=== PATIENT | female | born 1950 | race Caucasian/White ===

== ENCOUNTER 2018-05-24 11:40 | Emergency (ER) | payer MEDICARE, SELFPAY ==
[2018-05-24 11:41] VITALS: BP 174/98; PULSE 89; RESP 16; TEMP 36.6; O2SAT 95; BMI 42.8
[2018-05-24 12:00] VITALS: BP 158/69; PULSE 84; RESP 14; O2SAT 95
[2018-05-24 12:06] VITALS: BP 176/96; BP 186/89; BP 196/120; PULSE 83; PULSE 86; PULSE 99
--- NOTE | 2018-05-24 12:27 | EKG12_ITS ---
Test Reason : Blood Pressure : / mmHG Vent. Rate : 077 BPM Atrial Rate : 077 BPM P-R Int : 164 ms QRS Dur : 094 ms QT Int : 378 ms P-R-T Axes : 021 037 053 degrees QTc Int : 427 ms Normal sinus rhythm Normal ECG Confirmed by KAREEM MCKAY MD ([id number]), graphics editor EMERITA GONZALES ([id number] on 05/25/2018 11:55:01 AM Referred By: LALA Confirmed By:KAREEM MCKAY MD
--- NOTE | 2018-05-24 12:27 | RAD_ITS ---
STUDY: X-RAY CHEST REASON FOR EXAM: Female, 67 years old. Fatigue. Hyponatremia. TECHNIQUE: PA and lateral views of the chest. COMPARISON: None. FINDINGS: EKG electrodes are seen. There is elevation of the right hemidiaphragm. Scattered calcified granulomas. There is no demonstrated pleural abnormality. There is mild cardiac enlargement. Normal mediastinum and britni. Normal visualized pulmonary arteries. There is atherosclerotic calcification of the aortic arch with tortuosity. There are diffuse degenerative changes of the visualized thoracic spine. There is degenerative osteoarthritis of the bilateral shoulders. There is no demonstrated abnormality of the visualized soft tissue structures of the upper abdomen. RAD/Chest PA and Lateral IMPRESSION: Elevation of the right hemidiaphragm. Electronically Signed: Lokesh Wilson MD at 13:37 EST Tel [phone], Service support ,
--- NOTE | 2018-05-24 12:34 | ED.DCSUM_ITS ---
History of Present Illness Chief Complaint: Abn Labs Informant: Patient, Family Onset: Yesterday Associated Symptoms: fatigue. intermittent dizziness. Narrative: Patient had a routine visit with a new PCP with labs being drawn yesterday, they resulted showing a sodium of 116 she was advised to come to the ER. She states she has felt tired and fatigued for years. She has not been confused lately. She thinks she has been a little more tired lately. She cannot tell me how long. She finished a course of amoxicillin about a week ago for some dental discomfort from an old root canal. Subsequently, she has had some diarrhea several times a day that she thinks is starting to improve, no blood or melena. No nausea or vomiting. She has chronic dyspnea with exertion for the last several years as well, that is no worse and she denies having any chest discomfort. When she stands up she feels wobbly and vertiginous at times, no presyncope or syncope. That also has been chronically intermittent. She has had no issues urinating. She does have chronic incontinence for which she has a bladder stimulator. - Past Medical History (1) Bladder incontinence Status: Chronic Past Medical History - Allergies and Home Meds Allergies/Adverse Reactions: Allergies trospium Adverse Reaction (Verified 05/24/18 11:43) Shortness of breath Primary Care Physician: Richard Glass MD [Primary Care Provider] - Surgical History: - - bladder stimulator Lives: Alone Smoking Status: Never smoker Review of Systems General: Reports: Malaise. Denies: Chills, Fever, Sweats Eyes: Denies: Visual changes - bilaterally, Diplopia ENT: Denies: Bilateral ear pain, Rhinorrhea, Sore throat Cardiovascular: Denies: Chest pain, Palpitations Respiratory: Reports: Dyspnea on exertion. Denies: Cough, Orthopnea, Paroxysmal nocturnal dyspnea Gastrointestinal: Denies: Abdominal pain, Nausea, Vomiting, Diarrhea, Melena, Hematochezia Genitourinary: Denies: Dysuria, Hematuria, Frequency Musculoskeletal: Reports: Arthralgias. Denies: Neck pain, Back pain, Swelling Skin: Denies: Rash, Wounds Neurological: Denies: Headache, Weakness, Parasthesia, Numbness Psych: Denies: Anxiety, Suicidal thoughts Endocrine: Denies: Polyuria, Polydipsia Hematologic: Denies: Easy bruising, Easy bleeding Allergy: Denies: Swelling of the mouth, Swelling of the tongue Physical Exam Vital Signs/Narrative: Vital Signs Temp Pulse Pulse Pulse Pulse Resp BP 05/24/18 12:06 86 83 99 05/24/18 12:00 84 14 158/69 H 05/24/18 11:41 97.8 F 89 16 174/98 H BP BP BP Pulse Ox 05/24/18 12:06 176/96 H 186/89 H 196/120 H 05/24/18 12:00 95 05/24/18 11:41 95 Inital Vital Signs reviewed: Yes General: Well nourished, Well developed, Obese, - - well-appearing, nad Head: Normocephalic, Atraumatic Eyes: Perrl, EOMI ENT: Moist mucous membranes, No rhinorrhea. Negative for: Nasal congestion Neck: Supple, Nontender, No lymphadenopathy, No JVD Cardiovascular: Regular rate, Regular rhythm, No murmurs Respiratory: No distress, CTA bilaterally, Chest nontender Abdomen: Soft, Nontender, Nondistended, Normal bowel sounds Back: Nontender, Normal Inspection. Negative for: CVA tenderness Extremities: Nontender, No edema Skin: Normal color, No rash Neurological: Alert, Oriented x3, Cranial nerves II-XII grossly intact, Normal Strength, Normal Sensation Psychological: Normal affect Diagnostic/Tx/Re-eval Impressions Chest X-Ray 05/24/18 12:27 IMPRESSION: Elevation of the right hemidiaphragm. Electronically Signed: Lokesh Wilson MD at 13:37 EST Tel [phone], Service support , 05/24/18 12:27 Chest PA and Lateral [RAD] Stat Laboratory Results 05/24/18 05/24/18 05/24/18 12:43 12:55 12:55 WBC 6.1 RBC 4.22 Hgb 13.5 Hct 41.7 MCV 98.8 MCH 32.0 MCHC 32.4 RDW 12.8 RDW Differential 45.3 H Plt Count 214 MPV 10.8 Immature Gran % (Auto) 0.200 Neut % (Auto) 45.2 L Lymph % (Auto) 39.1 [place] % (Auto) 10.1 H Eos % (Auto) 4.4 Baso % (Auto) 1.0 Absolute Neuts (auto) 2.8 Absolute Lymphs (auto) 2.39 Total Counted Not Reportable Sodium Cancelled Potassium Cancelled Chloride Cancelled Carbon Dioxide Cancelled Anion Gap Cancelled BUN Cancelled Creatinine Cancelled Estim Creat Clear Calc Cancelled Est GFR (MDRD) Af Amer Cancelled Est GFR (MDRD) Non-Af Cancelled BUN/Creatinine Ratio Cancelled Glucose Cancelled Calcium Cancelled Troponin I Cancelled B-Natriuretic Peptide 18.7 Urine Color Urine Clarity Urine pH Ur Specific [place] Urine Protein Urine Glucose (UA) Urine Ketones Urine Occult Blood Urine Nitrite Urine Bilirubin Urine Urobilinogen Ur Leukocyte Esterase Urine RBC Urine WBC Ur Squamous Epith Cells Urine Bacteria Urine Mucus 05/24/18 05/24/18 12:55 14:17 WBC RBC Hgb Hct MCV MCH MCHC RDW RDW Differential Plt Count MPV Immature Gran % (Auto) Neut % (Auto) Lymph % (Auto) [place] % (Auto) Eos % (Auto) Baso % (Auto) Absolute Neuts (auto) Absolute Lymphs (auto) Total Counted Sodium 140 Potassium 4.4 Chloride 106 Carbon Dioxide 30.0 Anion Gap 4 L BUN 17 Creatinine 0.65 Estim Creat Clear Calc 45.85 Est GFR (MDRD) Af Amer 116 Est GFR (MDRD) Non-Af 96 BUN/Creatinine Ratio 26.2 H Glucose 111 H Calcium 8.8 Troponin I < 0.015 B-Natriuretic Peptide Urine Color Yellow Urine Clarity Clear Urine pH 7.0 Ur Specific [place] 1.005 Urine Protein Negative Urine Glucose (UA) Normal Urine Ketones Negative Urine Occult Blood 10 H Urine Nitrite Negative Urine Bilirubin Negative Urine Urobilinogen Normal Ur Leukocyte Esterase Negative Urine RBC 0-5 SEEN Urine WBC 0 SEEN Ur Squamous Epith Cells 0 SEEN Urine Bacteria 0 SEEN Urine Mucus 0 SEEN - Rhythm Strip Rhythm Strip: Sinus Rhythm Rate: 75 Ectopy: None - EKG Initial EKG Interpretation: Sinus Rhythm, No Acute Injury Pattern - Normal EKG - Medical Decision Making Labs are normal including her sodium at 140. Her calcium was low out on outpatient labs, that is normal on our labs today also. I discussed with Dr. Glass, we agreed this was probably lab error from the labs yesterday, she appeared to have cholesterol checked that were normal too including triglycerides, she appears to be euvolemic. Also, urine was unremarkable, her BNP is 16, well within normal limits. I think she can be discharged home with close outpatient follow-up for reevaluation of her blood pressure. She is comfortable with that plan. ED Disposition - Plan for ED Patient: Disposition: Home or Assisted Living Chief Complaint: Abn Labs Diagnosis: Fatigue, Dyspnea on exertion, Accelerated hypertension Instructions: ED Weakness UKO, ED HTN Established Referrals: Richard Glass MD [Primary Care Provider] - 1 Week if not improving
[2018-05-24] MEDS: 0.9% Normal Saline 1,000 ML 150 ML IV (13:06)
[2018-05-24] MEDS: hydrALAZINE 20 MG/ML Vial 10 MG IV (13:06)
[2018-05-24 13:11] LABS: Absolute Lymphocyte Count 2.39 X10^3/ul (0.83-4.51); Absolute Neutrophil Count 2.8 X10^3/uL (2.0-7.7); Basophil# 0.06 X10^3/uL; Eosinophil# 0.27 X10^3/uL; Eosinophils% 4.4 % (0-5); Hematocrit 41.7 % (37-47); Hemoglobin 13.5 g/dl (12.0-15.0); Lymphocyte # 2.39 X10^3/ul (4.0); Lymphocyte % 39.1 % (19-41); Mean Corp Hgb Conc 32.4 g/gl (32-36); Mean Corpuscular Volume 98.8 fL (81-99); Mean Platelet Vol. 10.8 fl (6.2-12.0); Monocyte# 0.62 X10^3/uL; Monocyte% 10.1 % (0-10); Neutrophil # 2.76 X10^3/uL (2.7-7.7); Neutrophil % 45.2 % (47-70); POSITIVE COUNT NO; POSITIVE DIFFERENTIAL NO; POSITIVE MORPHOLOGY NO; Platelet Count 214 K/mm3 (150-450); RBC Distribution Width CV 12.8 % (11.6-14.6); RBC Distribution Width SD 45.3 fl (35.1-43.9); Red Blood Count 4.22 M/mm3 (4.2-5.4); White Blood Count 6.1 K/mm3 (4.4-11.0)
[2018-05-24 13:35] LABS: Anion Gap 4 (5-15); BNP,B-Type NATRIURETIC PEPTIDE 18.7 pg/mL (0-100); BUN 17 mg/dL (7-18); BUN/Creat Ratio 26.2 RATIO (10-20); Calcium,Total 8.8 mg/dL (8.5-10.1); Chloride 106 mmol/L (98-107); Creatinine, Serum 0.65 mg/dL (0.55-1.02); EST Glomerular Filtration Rate 96 mL/min (>60); Est Glom Filt Rate - Afr Amer 116 mL/min (>60); Estimated Creatinine Clearance 45.85 ml/min; Glucose 111 mg/dL (74-106); Potassium 4.4 mmol/L (3.5-5.1); Sodium Level 140 mmol/L (136-145)
[2018-05-24 14:00] VITALS: BP 150/60; PULSE 90; RESP 16; O2SAT 95
[2018-05-24 14:22] LABS: Bacteria 0 SEEN /hpf (None Seen); Mucous, Urine 0 SEEN /hpf (<or=2+); Squamous Epithelial Cells - UA 0 SEEN /hpf (5-10); White Blood Cells 0 SEEN /hpf (0-5)
[2018-05-24 14:29] LABS: Color, Urine Yellow (Yellow); Glucose, Dipstick Normal (Normal); Ketone-Dipstick Negative (Negative); Leukocyte Esterase-Dipstick Negative /ul (Negative); Nitrite-Dipstick Negative (Negative); Occult Blood-Urine 10 /ul (Negative); Protein-Dipstick Negative (Negative); Specific Gravity, Urine 1.005 (1.002-1.030); Urine Bilirubin Dipstick Negative (Negative); Urine Clarity Clear (Clear); Urine Urobilinogen Normal (Normal)
[2018-05-24 14:51] LABS: Red Blood Cells-Urine 0-5 SEEN /hpf (0-5)
[2018-05-24 15:46] VITALS: BP 140/63; PULSE 84; RESP 18; O2SAT 98
--- NOTE | 2018-05-24 15:47 | ED.RN ---
REVIEWED D/C INSTRUCTIONS, FOLLOW UP CARE, PRESCRIPTION, AND S/S THAT WOULD WARRANT A RETURN TO THE ED WITH PT. PT VERBALIZED AN UNDERSTANDING AND DENIES FURTHER QUESTIONS FOR THIS RN. PT SKIN P/W/D, RESP EVEN AND UNLABORED, PT A&O X 3, NO DISTRESS NOTED. PT AMBULATED OUT OF ED, GAIT STEADY.
--- OUTSIDE RECORDS SUMMARY | 2018-07-10 08:55 | XMS RPT_ITS ---
:1950 Author Organization OH[facility] Care Team Providers Name Role Phone DESTINI SILVA (DAVID) Attending Unavailable DESTINI SILVA (DAVID) Referring Unavailable MARINA GLASS () Attending Unavailable JOMAR REEVES Attending Unavailable Richard Glass Primary Care Unavailable PROBLEMS PROBLEMS DATE TYPE CONDITION / CODE ATTENDING STATUS SOURCE 05/23/2018 Active Type 2 diabetes NA Active [facility] mellitus without [place] complications / Repository E11.9(ICD-10) 05/23/2018 Active Encounter for NA Active [facility] screening for [place] lipoid disorders / Repository Z13.220(ICD-10) PROCEDURES PROCEDURES No Procedure Records FoundRESULTS RESULTS PROGRESS Observed: 06/26/2018 Status: COMPLETED Source: [facility] 3:02 PM [facility] RE[facility]IT[facility] HNO ID: [id number] Author: Marina Berry) Maria Luisa Service: (none) Author Type: Physician Type: Progress Notes Filed: 06/27/2018 1:41 PM Note Text: Chief Complaint Patient presents with: Establish Care: cough/cold Physical HPI Chela Siu is a 67 year old female who presents here today for Establish care visit. Previously seeing Dr. Goyo Mace in [facility] and last appointment was about 5-6 months ago. Complaining of cough and cold symptoms which started about 2 weeks ago after getting back from [employer] in [place]. Had cough, SOB, diarrhea, sore throat, fever of 101. Treating with robitussin for cough which helps temporarily. Symptoms improving slowly. Still has lingering dry cough. Other symptoms have resolved. States that she had A1C and FOBT testing through [email or web address]. Did not bring testing from home. Remember FOBT was negative. Cannot remember A1C. Agreeable to repeat testing today. States that she feels like her sugars are low today because she has not eaten much today and is starting to get shaky and sweaty. DIABETES MELLITUS: Ms. Siu was last seen 3 months ago. Since our last visit she denies excessive thirst or increased frequency of urination, numbness, tingling or pain in extremities, new or unusual visual symptoms Patient admits to have low sugar/hypoglycemic reactions less than once every two weeks. Follows a diabetic diet some of the time. She is compliant with medication(s) and is tolerating med(s) without any side effects. She reports checking her glucose on a every other day schedule with sugars in the <120 range. Patient's last HgA1C was Hemoglobin A1C (POCT) (%) Date Value 06/26/2018 5.8 ) Last Ophthalmology exam was within the past 12 months Last Podiatry exam was within the past 12 months, negative for DM retinopathy Patient has not had mammogram in the last 15 years. Due for prevnar vaccine. Refusing influenza vaccine and tetanus booster. Past medical history, appointments, medications, allergies reviewed. Previous Medical History PAST MEDICAL HISTORY Diagnosis Date - DM (diabetes mellitus screen) - DM2 (diabetes mellitus, type 2) ([facility]) on oral medications. - HTN (hypertension) - Knee pain - Morbid obesity (HCC) - DEISY (obstructive sleep apnea) - VTE (venous thromboembolism) 2009 right upper arm, was on coumadin. Previous Surgical History PAST SURGICAL HISTORY Procedure Laterality Date - CHOLECYSTECTOMY 2008 open - F SNGL x 2 - CT ANESTH,TOTAL KNEE ARTHROPLASTY Left 05/2016 - SKIN GRAFT PROCEDURE age 3y/o - SLING OPER STRES INCONTINENCE - TONSILLECTOMY HX age 23y/o - TOTAL ABDOM HYSTERECTOMY 2006 Family History FAMILY HISTORY Problem Relation Age of Onset - None Mother - None Father Patient Allergies ALLERGIES Allergen Reactions - Oxybutynin Other: See Comments difficulty swallowing, confusion and agitation Current Medications Current Outpatient Prescriptions on File Prior to Visit: CPAP Initiate CPAP @ 9 cm of water with humidification. Mask (per patient preference) optional chin strap (if indicated) , filters, tubing, humidifier and lifetime supplies. FLUoxetine HCl (PROZAC) 40 mg capsule Take 1 capsule by mouth once daily. lisinopril (ZESTRIL, PRINIVIL) 5 mg tablet Take 1 tablet by mouth once daily. (Patient taking differently: Take 10 mg by mouth once daily. ) metFORMIN (GLUCOPHAGE) 500 mg tablet Take 2 tablets by mouth twice daily with meals. TAKE TWO(2) TABLETS BID CPAP daily at bedtime. glimepiride 1 mg tablet Take 1 mg by mouth twice daily with meals. Cholecalciferol, Vitamin D3, (VITAMIN D) 1,000 unit cap Take 1,000 Units by mouth once daily. CALCIUM CARBONATE (CALCIUM 600 ORAL) Take 2 tablets by mouth once daily. VITAMIN B COMPLEX (SUPER B COMPLEX ORAL) Take 1 tablet by mouth once daily. Ascorbic Acid (VITAMIN C) 1,000 mg tablet Take 1,000 mg by mouth once daily. [place]-3 Fatty Acids-Vitamin E (FISH OIL) 1,000 mg cap Take 1 capsule by mouth once daily. No current facility-administered medications on file prior to visit. Social History Social History Marital status: Spouse name: Years of education: Number of children: Social History Main Topics Smoking status: Former Smoker Packs/day: 0.00 Years: 0.00 Types: Cigarettes Smokeless tobacco: Never Used Comment: 2 years in the 70s. Alcohol use: No Drug use: No Sexual activity: Yes Partners with: Male Review of Symptoms REVIEW OF SYSTEMS GENERAL: No weight loss, malaise or fevers RESPIRATORY: See HPI CARDIOVASCULAR: Negative for chest pain, leg swelling, hypertension, CHF or palpitations GI: No nausea, vomiting, or diarrhea SKIN: Negative for lesions, rash, and itching EXAM: BP 136/78 Pulse 84 Temp 36.7 ?C (98 ?F) (Tympanic) Resp 16 Ht 161 cm (5' 3.39) Wt 112.9 kg (249 lb) BMI 43.57 kg/m? General Appearance: Well appearing, alert, in no acute distress, well-hydrated, well nourished.. Skin: Skin color, texture, turgor normal, no suspicious rashes or lesions. Lungs: negative findings: normal respiratory rate and rhythm, chest symmetric with normal A/P diameter, no chest deformities noted and no chest wall tenderness positive findings: scattered end expiratory wheezing . Heart: RRR without murmur, gallop, or rubs. No ectopy. Abdomen: Normal abdominal exam, Abdomen soft, non-tender. Bowel sounds normal. No masses, organomegaly. Extremities: No deformities, edema, skin discoloration, clubbing or cyanosis. Good capillary refill. . Health Maintenance List HBA1C due on 1953 ANNUAL PCP TEAM CHRONIC DISEASE VISIT due on 1966 BP CONTROLLED (<130/80) due on 1966 DTAP,TDAP,TD(1 - Tdap) due on 11/29/1967 MAMMOGRAM due on 1988 HEPATITIS C SCREENING due on 1992 COLORECTAL CANCER SCREENING,SEE MODIFIER due on 1998 BONE DENSITY due on 2013 ADULT PREVNAR-13 due on 2013 PNEUMOVAX AGE 65 AND OVER WITH 5YR LOOKBACK(1) due on 2013 DIABETES MED ADHERENCE due on 07/13/2018 DIABETIC FOOT EXAM due on 03/15/2019 DILATED RETINAL EXAM due on 04/09/2019 URINE ALBUMIN:CREATININE RATIO due on 05/23/2019 LDL CHOLESTEROL due on 05/23/2019 INFLUENZA Completed Data reviewed Component Latest Ref Rng AND Units 05/23/2018 Protein, Total 6.3 - 8.0 g/dL 6.3 Albumin 3.9 - 4.9 g/dL 3.3 (L) Calcium 8.5 - 10.2 mg/dL 7.8 (L) Bilirubin, Total 0.2 - 1.3 mg/dL 0.4 Alkaline Phosphatase 34 - 123 U/L 56 AST 13 - 35 U/L 83 (H) Glucose 74 - 99 mg/dL 91 BUN 7 - 21 mg/dL 12 Creatinine 0.58 - 0.96 mg/dL 0.55 (L) Sodium 136 - 144 mmol/L 116 (L) Potassium 3.7 - 5.1 mmol/L 4.0 Chloride 97 - 105 mmol/L 82 (L) CO2 22 - 30 mmol/L 23 Anion Gap 9 - 18 mmol/L 11 ALT 7 - 38 U/L 83 (H) eGFR- >60 eGFR-All Other Races . >60 Cholesterol, Total <200 mg/dL 138 Triglyceride <150 mg/dL 118 HDL Cholesterol >39 mg/dL 46 LDL Cholesterol <100 mg/dL 68 Non HDL Cholesterol <130 mg/dL 92 Fasting Time hrs 12 VLDL Cholesterol <30 mg/dL 24 TC:HDL Ratio <5.10 3.00 LDL:HDL Ratio <2.54 1.48 Creatinine, Ur Random (UCRR) 20 - 300 mg/dL 102.5 Albumin, Urine Random 0.0 - 23.0 mg/L 13.3 Albumin/Creat Ratio 0 - 30 mg/g 13 Component Latest Ref Rng AND Units 06/26/2018 Glucose, Point of Care 74 - 99 mg/dL 89 ASSESSMENT/PLAN: 1. Bronchitis - ICD9: 490, ICD10: J40 (primary diagnosis) Albuterol q4 for next 2-3 days, then PRN. Tessalon for cough. Push PO fluids, humidifier in room at night, rest. To call with worsening symptoms. - BENZONATATE 100 MG CAPSULE - ALBUTEROL SULFATE HFA 90 MCG/ACTUATION AEROSOL INHALER 2. Type 2 diabetes mellitus without complication, without long-term current use of insulin (HCC) - ICD9: 250.00, ICD10: E11.9 Controlled. - Discontinue glimepiride (Amaryl) due to hypoglycemia. Given can of juice in room during exam. Patient's symptoms improved. - Blood glucose monitoring on a twice a day schedule - Encouraged regular aerobic exercise and weight loss - Daily Asprin therapy recommended - Follow up in 3 months, sooner should any other issues arise. - Discussed diabetic education issues of [facility] diabetic complications, hypoglycemic symptoms, hyperglycemic symptoms, diet and medications- side effects and need for compliance with patient. - HEMOGLOBIN A1C (POC) - ATORVASTATIN 20 MG TABLET - GLUCOSE, BLOOD (POC) - COMP METABOLIC PANEL - HGB A1C 3. Essential hypertension - ICD9: 401.9, ICD10: I10 - good control - Continue current medication(s) - Encouraged dietary sodium restriction/DASH diet - Recommended regular aerobic exercise. - Reviewed risks of HTN and principles of treatment - Goal of BP <140/90 - LISINOPRIL 10 MG TABLET 4. DEISY (obstructive sleep apnea) - ICD9: 327.23, ICD10: G47.33 Using CPAP nightly. 5. Other urinary incontinence - ICD9: 788.39, ICD10: N39.498 S/p bladder sling and stimulator. F/u with urology. 6. Encounter for hepatitis C screening test for low risk patient - ICD9: V73.89, ICD10: Z11.59 - HEP C AB IA BLOOD 7. Screening mammogram, encounter for - ICD9: V76.12, ICD10: Z12.31 - Set up for mammogram, yearly mammogram recommended - Follow up for annual exam in one year. - RAPHAEL SCREENING 8. Need for vaccination - ICD9: V05.9, ICD10: Z23 - PNEUMOCOCCAL-13 VACCINE PCV-13 Marina Glass MD CNOV Observed: 06/26/2018 Status: COMPLETED Source: [facility] 3:00 PM [facility] REPOSITORY Office Visit (FAMPWS) CHELA SIU ([id number]) 1950 F Date Time Provider Department 06/26/18 3:00 PM MARINA GLASS) FAMPWS During your visit today, we recorded the following information about you: Temperature Pulse Respiration Blood pressure 98 degrees 84/minute 16/minute 136/78 Weight Height 112.9 kg 1.61 m Marina Glass MD 06/27/2018 1:41 PM Signed Chief Complaint Patient presents with: Establish Care: cough/cold Physical HPI Chela Siu is a 67 year old female who presents here today for Establish care visit. Previously seeing Dr. Goyo Mace in [facility] and last appointment was about 5-6 months ago. Complaining of cough and cold symptoms which started about 2 weeks ago after getting back from [employer] in [place]. Had cough, SOB, diarrhea, sore throat, fever of 101. Treating with robitussin for cough which helps temporarily. Symptoms improving slowly. Still has lingering dry cough. Other symptoms have resolved. States that she had A1C and FOBT testing through [facility]. Did not bring testing from home. Remember FOBT was negative. Cannot remember A1C. Agreeable to repeat testing today. States that she feels like her sugars are low today because she has not eaten much today and is starting to get shaky and sweaty. DIABETES MELLITUS: Ms. Siu was last seen 3 months ago. Since our last visit she denies excessive thirst or increased frequency of urination, numbness, tingling or pain in extremities, new or unusual visual symptoms Patient admits to have low sugar/hypoglycemic reactions less than once every two weeks. Follows a diabetic diet some of the time. She is compliant with medication(s) and is tolerating med(s) without any side effects. She reports checking her glucose on a every other day schedule with sugars in the <120 range. Patient's last HgA1C was Hemoglobin A1C (POCT) (%) Date Value 06/26/2018 5.8 ) Last Ophthalmology exam was within the past 12 months Last Podiatry exam was within the past 12 months, negative for DM retinopathy Patient has not had mammogram in the last 15 years. Due for prevnar vaccine. Refusing influenza vaccine and tetanus booster. Past medical history, appointments, medications, allergies reviewed. Previous Medical History PAST MEDICAL HISTORY Diagnosis Date - DM (diabetes mellitus screen) - DM2 (diabetes mellitus, type 2) (HCC) on oral medications. - HTN (hypertension) - Knee pain - Morbid obesity (HCC) - DEISY (obstructive sleep apnea) - VTE (venous thromboembolism) 2009 right upper arm, was on coumadin. Previous Surgical History PAST SURGICAL HISTORY Procedure Laterality Date - CHOLECYSTECTOMY 2009 open - F SNGL x 2 - CT ANESTH,TOTAL KNEE ARTHROPLASTY Left 05/2016 - SKIN GRAFT PROCEDURE age 3y/o - SLING OPER STRES INCONTINENCE - TONSILLECTOMY HX age 23y/o - TOTAL ABDOM HYSTERECTOMY 2006 Family History FAMILY HISTORY Problem Relation Age of Onset - None Mother - None Father Patient Allergies ALLERGIES Allergen Reactions - Oxybutynin Other: See Comments difficulty swallowing, confusion and agitation Current Medications Current Outpatient Prescriptions on File Prior to Visit: CPAP Initiate CPAP @ 9 cm of water with humidification. Mask (per patient preference) optional chin strap (if indicated) , filters, tubing, humidifier and lifetime supplies. FLUoxetine HCl (PROZAC) 40 mg capsule Take 1 capsule by mouth once daily. lisinopril (ZESTRIL, PRINIVIL) 5 mg tablet Take 1 tablet by mouth once daily. (Patient taking differently: Take 10 mg by mouth once daily. ) metFORMIN (GLUCOPHAGE) 500 mg tablet Take 2 tablets by mouth twice daily with meals. TAKE TWO(2) TABLETS BID CPAP daily at bedtime. glimepiride 1 mg tablet Take 1 mg by mouth twice daily with meals. Cholecalciferol, Vitamin D3, (VITAMIN D) 1,000 unit cap Take 1,000 Units by mouth once daily. CALCIUM CARBONATE (CALCIUM 600 ORAL) Take 2 tablets by mouth once daily. VITAMIN B COMPLEX (SUPER B COMPLEX ORAL) Take 1 tablet by mouth once daily. Ascorbic Acid (VITAMIN C) 1,000 mg tablet Take 1,000 mg by mouth once daily. [place]-3 Fatty Acids-Vitamin E (FISH OIL) 1,000 mg cap Take 1 capsule by mouth once daily. No current facility-administered medications on file prior to visit. Social History Social History Marital status: Spouse name: Years of education: Number of children: Social History Main Topics Smoking status: Former Smoker Packs/day: 0.00 Years: 0.00 Types: Cigarettes Smokeless tobacco: Never Used Comment: 2 years in the 70s. Alcohol use: No Drug use: No Sexual activity: Yes Partners with: Male Review of Symptoms REVIEW OF SYSTEMS GENERAL: No weight loss, malaise or fevers RESPIRATORY: See HPI CARDIOVASCULAR: Negative for chest pain, leg swelling, hypertension, CHF or palpitations GI: No nausea, vomiting, or diarrhea SKIN: Negative for lesions, rash, and itching EXAM: BP 136/78 Pulse 84 Temp 36.7 ?C (98 ?F) (Tympanic) Resp 16 Ht 161 cm (5' 3.39) Wt 112.9 kg (249 lb) BMI 43.57 kg/m? General Appearance: Well appearing, alert, in no acute distress, well-hydrated, well nourished.. Skin: Skin color, texture, turgor normal, no suspicious rashes or lesions. Lungs: negative findings: normal respiratory rate and rhythm, chest symmetric with normal A/P diameter, no chest deformities noted and no chest wall tenderness positive findings: scattered end expiratory wheezing . Heart: RRR without murmur, gallop, or rubs. No ectopy. Abdomen: Normal abdominal exam, Abdomen soft, non-tender. Bowel sounds normal. No masses, organomegaly. Extremities: No deformities, edema, skin discoloration, clubbing or cyanosis. Good capillary refill. . Health Maintenance List HBA1C due on 1953 ANNUAL PCP TEAM CHRONIC DISEASE VISIT due on 1966 BP CONTROLLED (<130/80) due on 1966 DTAP,TDAP,TD(1 - Tdap) due on 11/29/1967 MAMMOGRAM due on 1988 HEPATITIS C SCREENING due on 1992 COLORECTAL CANCER SCREENING,SEE MODIFIER due on 1998 BONE DENSITY due on 2013 ADULT PREVNAR-13 due on 2013 PNEUMOVAX AGE 65 AND OVER WITH 5YR LOOKBACK(1) due on 2013 DIABETES MED ADHERENCE due on 07/13/2018 DIABETIC FOOT EXAM due on 03/15/2019 DILATED RETINAL EXAM due on 04/09/2019 URINE ALBUMIN:CREATININE RATIO due on 05/23/2019 LDL CHOLESTEROL due on 05/23/2019 INFLUENZA Completed Data reviewed Component Latest Ref Rng AND Units 05/23/2018 Protein, Total 6.3 - 8.0 g/dL 6.3 Albumin 3.9 - 4.9 g/dL 3.3 (L) Calcium 8.5 - 10.2 mg/dL 7.8 (L) Bilirubin, Total 0.2 - 1.3 mg/dL 0.4 Alkaline Phosphatase 34 - 123 U/L 56 AST 13 - 35 U/L 83 (H) Glucose 74 - 99 mg/dL 91 BUN 7 - 21 mg/dL 12 Creatinine 0.58 - 0.96 mg/dL 0.55 (L) Sodium 136 - 144 mmol/L 116 (L) Potassium 3.7 - 5.1 mmol/L 4.0 Chloride 97 - 105 mmol/L 82 (L) CO2 22 - 30 mmol/L 23 Anion Gap 9 - 18 mmol/L 11 ALT 7 - 38 U/L 83 (H) eGFR- >60 eGFR-All Other Races . >60 Cholesterol, Total <200 mg/dL 138 Triglyceride <150 mg/dL 118 HDL Cholesterol >39 mg/dL 46 LDL Cholesterol <100 mg/dL 68 Non HDL Cholesterol <130 mg/dL 92 Fasting Time hrs 12 VLDL Cholesterol <30 mg/dL 24 TC:HDL Ratio <5.10 3.00 LDL:HDL Ratio <2.54 1.48 Creatinine, Ur Random (UCRR) 20 - 300 mg/dL 102.5 Albumin, Urine Random 0.0 - 23.0 mg/L 13.3 Albumin/Creat Ratio 0 - 30 mg/g 13 Component Latest Ref Rng AND Units 06/26/2018 Glucose, Point of Care 74 - 99 mg/dL 89 ASSESSMENT/PLAN: 1. Bronchitis - ICD9: 490, ICD10: J40 (primary diagnosis) Albuterol q4 for next 2-3 days, then PRN. Tessalon for cough. Push PO fluids, humidifier in room at night, rest. To call with worsening symptoms. - BENZONATATE 100 MG CAPSULE - ALBUTEROL SULFATE HFA 90 MCG/ACTUATION AEROSOL INHALER 2. Type 2 diabetes mellitus without complication, without long-term current use of insulin (HCC) - ICD9: 250.00, ICD10: E11.9 Controlled. - Discontinue glimepiride (Amaryl) due to hypoglycemia. Given can of juice in room during exam. Patient's symptoms improved. - Blood glucose monitoring on a twice a day schedule - Encouraged regular aerobic exercise and weight loss - Daily Asprin therapy recommended - Follow up in 3 months, sooner should any other issues arise. - Discussed diabetic education issues of [facility] diabetic complications, hypoglycemic symptoms, hyperglycemic symptoms, diet and medications- side effects and need for compliance with patient. - HEMOGLOBIN A1C (POC) - ATORVASTATIN 20 MG TABLET - GLUCOSE, BLOOD (POC) - COMP METABOLIC PANEL - HGB A1C 3. Essential hypertension - ICD9: 401.9, ICD10: I10 - good control - Continue current medication(s) - Encouraged dietary sodium restriction/DASH diet - Recommended regular aerobic exercise. - Reviewed risks of HTN and principles of treatment - Goal of BP <140/90 - LISINOPRIL 10 MG TABLET 4. DEISY (obstructive sleep apnea) - ICD9: 327.23, ICD10: G47.33 Using CPAP nightly. 5. Other urinary incontinence - ICD9: 788.39, ICD10: N39.498 S/p bladder sling and stimulator. F/u with urology. 6. Encounter for hepatitis C screening test for low risk patient - ICD9: V73.89, ICD10: Z11.59 - HEP C AB IA BLOOD 7. Screening mammogram, encounter for - ICD9: V76.12, ICD10: Z12.31 - Set up for mammogram, yearly mammogram recommended - Follow up for annual exam in one year. - RAPHAEL SCREENING 8. Need for vaccination - ICD9: V05.9, ICD10: Z23 - PNEUMOCOCCAL-13 VACCINE PCV-13 Marina Glass MD Referring Provider: SELF [200] Allergies As of Date: 06/26/2018 Noted Allergy Reaction OXYBUTYNIN 08/13/2013 14 - Other: See Comments Comments: difficulty swallowing, confusion and agitation Date Reviewed: 06/26/2018 Reviewed by: Marina Berry) Maria Luisa - Fully Assessed Reason for Visit: Establish Care [42] Cmt: cough/cold Physical [83] Reason For Visit History Recorded Primary Visit Diagnosis:Bronchitis [J40] Other Visit Diagnoses:Type 2 diabetes mellitus without complication, without long-term current use of insulin (HCC) [E11.9] Essential hypertension [I10] DEISY (obstructive sleep apnea) [G47.33] Other urinary incontinence [N39.498] Encounter for hepatitis C screening test for low risk patient [Z11.59] Screening mammogram, encounter for [Z12.31] Need for vaccination [Z23] Order(s):lisinopril (ZESTRIL, PRINIVIL) 10 mg tabletTake 1 tablet by mouth once daily.Disp: 30 tabletRfl: 5 HEMOGLOBIN A1C (POC) [0072011] Order #: [id number]. #:[id number] atorvastatin (LIPITOR) 20 mg tabletTake 1 tablet by mouth daily at bedtime. For cholesterol.Disp: 30 tabletRfl: 5 GLUCOSE, BLOOD (POC) [5624704] Order #: [id number] HEP C AB IA BLOOD [SQAHCV] Order #: [id number] FUTURE RAPHAEL SCREENING [7408805] Order #: [id number] FUTURE PNEUMOCOCCAL-13 VACCINE PCV-13 [10483REM] Order #: [id number] benzonatate (TESSALON PERLE) 100 mg capsuleTake 1 capsule by mouth three times daily as needed for up to 10 days.Disp: 30 capsuleRfl: 0 albuterol HFA (VENTOLIN HFA) 90 mcg/actuation inhalerInhale 2 Puffs as instructed every 4 hours as needed.Disp: 1 InhalerRfl: 1 COMP METABOLIC PANEL [SQCMP] Order #: [id number] FUTURE HGB A1C [YDJLL3F] Order #: [id number] FUTURE GLUCOSE, BLOOD (POC) [3409440] Order #: [id number]. #:[id number] Prescriptions as of 06/26/2018 Sig: LISINOPRIL 10 MG TABLET Take 1 tablet by mouth once d* CPAP Initiate CPAP @ 9 cm of water* FLUOXETINE 40 MG CAPSULE Take 1 capsule by mouth once * METFORMIN 500 MG TABLET Take 2 tablets by mouth twice* CHOLECALCIFEROL (VITAMIN D3) * Take 1,000 Units by mouth onc* CALCIUM 600 ORAL Take 2 tablets by mouth once * SUPER B COMPLEX ORAL Take 1 tablet by mouth once d* ASCORBIC ACID (VITAMIN C) 1,0* Take 1,000 mg by mouth once d* OMEGA-3 FATTY ACIDS-VITAMIN E* Take 1 capsule by mouth once * ATORVASTATIN 20 MG TABLET Take 1 tablet by mouth daily * BENZONATATE 100 MG CAPSULE Take 1 capsule by mouth three* ALBUTEROL SULFATE HFA 90 MCG/* Inhale 2 Puffs as instructed * Problem List As Of Date 06/26/2018 Noted Resolved OTHER URINARY INCONTINENCE [N39.498] INVALID FOR* Overflow incontinence [N39.490] INVALID FOR*06/26/2018 Mixed incontinence [N39.46] INVALID FOR*06/26/2018 Hematuria [R31.9] INVALID FOR* Female stress incontinence [N39.3] INVALID FOR*06/26/2018 Urge incontinence [N39.41] INVALID FOR*06/26/2018 DEISY (obstructive sleep apnea) [G47.33] INVALID FOR* HTN (hypertension) [I10] INVALID FOR* Type 2 diabetes mellitus without complication (*INVALID FOR* Morbid obesity (HCC) [E66.01] INVALID FOR* Chronic pain of both knees [M25.561, M25.562, G*INVALID FOR* Deep vein thrombosis (DVT) of upper extremity (*INVALID FOR*06/26/2018 Prescriptions ordered this encounter Disp Refills Start End LISINOPRIL 10 MG TABLET 30 t* 5 06/26/2018 Route: ORAL Sig: Take 1 tablet by mouth once daily. ATORVASTATIN 20 MG TABLET 30 t* 5 06/26/2018 Route: ORAL Sig: Take 1 tablet by mouth daily at bedtime. For cholesterol. BENZONATATE 100 MG CAPSULE 30 c* 0 06/26/2018 07/06/2018 Route: ORAL Sig: Take 1 capsule by mouth three times daily as needed for up to 10 days. ALBUTEROL SULFATE HFA 90 MCG/ACTUATI* 1 In* 1 06/26/2018 Route: INHALATION Sig: Inhale 2 Puffs as instructed every 4 hours as needed. Medications Discontinued During This Encounter lisinopril (ZESTRIL, PRINIVIL) 5 mg * 90 t* 1 03/15/2018 06/26/2018 Route: ORAL Sig: Take 1 tablet by mouth once daily. Patient taking differently: Take 10 mg by mouth once daily. Disc: Reason for discontinue is not on file. CPAP 06/26/2018 Class: Historical Med Sig: daily at bedtime. Disc: Reason for discontinue is not on file. glimepiride 1 mg tablet 06/26/2018 Class: Historical Med Route: ORAL Sig: Take 1 mg by mouth twice daily with meals. Disc: Reason for discontinue is not on file. Disposition: Return in about 3 months (around 09/24/2018). Follow-up and Disposition History Recorded Encounter Status:Closed by MARINA GLASS MD on 06/27/18 12 LEAD ELECTROCARDIOGRAM Observed: 05/25/2018 Status: F Source: [place] 11:55 AM [facility] Cardiovascular Services [address] [place] [id number] 12 Lead EKG 05/24/18 1246 MR#: [id number] Acct: [id number] Name: CHELA SIU Rep #: [id number] : 1950 67 From: Celio Heard MD Attending Dr: Status: DEP ER Ordering Dr: Jomar Reeves MD Date: 05/24/18 Location: ED Sex: F C Admitted: Test Reason : Blood Pressure : / mmHG Vent. Rate : 077 BPM Atrial Rate : 077 BPM P-R Int : 164 ms QRS Dur : 094 ms QT Int : 378 ms P-R-T Axes : 021 037 053 degrees QTc Int : 427 ms Normal sinus rhythm Normal ECG Confirmed by NELY SUBRAMANIAN, CELIO ([id number]), associate editor EMERITA GONZALES ([id number]) on 05/25/2018 11:55:01 AM Referred By: LALA Confirmed By:CELIO HEARD MD 05/25/18 1155 Date Celio Heard MD CC: JOMAR REEVES MD; Richard Glass MD Signed EMERGENCY DEPARTMENT Observed: 05/24/2018 Status: F Source: [place] SUMMARY 3:27 PM [facility] REPOSITORY [facility] Medical Records Department [address] [place] [address] Emergency Department Summary 05/24/18 1230 MR#: [id number] Acct: [id number] Name: CHELA SIU Rep #: [id number] : [id number] From: Jomar Reeves MD PCP: Richard Glass MD Status: REG ER ADDENDUM by JOMAR REEVES MD on 05/24/18 at 1527 Patient is only on lisinopril 5 mg once daily. I advised her to double that, and I am giving her a new prescription for it. 05/24/18 1527 Date Jomar Reeves MD cc: Richard Glass MD * Signed History of Present Illness Chief Complaint: Abn Labs Informant: Patient, Family Onset: Yesterday Associated Symptoms: fatigue. intermittent dizziness. Narrative: Patient had a routine visit with a new PCP with labs being drawn yesterday, they resulted showing a sodium of 116 she was advised to come to the ER. She states she has felt tired and fatigued for years. She has not been confused lately. She thinks she has been a little more tired lately. She cannot tell me how long. She finished a course of amoxicillin about a week ago for some dental discomfort from an old root canal. Subsequently, she has had some diarrhea several times a day that she thinks is starting to improve, no blood or melena. No nausea or vomiting. She has chronic dyspnea with exertion for the last several years as well, that is no worse and she denies having any chest discomfort. When she stands up she feels wobbly and vertiginous at times, no presyncope or syncope. That also has been chronically intermittent. She has had no issues urinating. She does have chronic incontinence for which she has a bladder stimulator. - Past Medical History (1) Bladder incontinence Status: Chronic Past Medical History - Allergies and Home Meds Allergies/Adverse Reactions: Allergies trospium Adverse Reaction (Verified 05/24/18 11:43) Shortness of breath Primary Care Physician: Richard Glass MD [Primary Care Provider] - Surgical History: - - bladder stimulator Lives: Alone Smoking Status: Never smoker Review of Systems General: Reports: Malaise. Denies: Chills, Fever, Sweats Eyes: Denies: Visual changes - bilaterally, Diplopia ENT: Denies: Bilateral ear pain, Rhinorrhea, Sore throat Cardiovascular: Denies: Chest pain, Palpitations Respiratory: Reports: Dyspnea on exertion. Denies: Cough, Orthopnea, Paroxysmal nocturnal dyspnea Gastrointestinal: Denies: Abdominal pain, Nausea, Vomiting, Diarrhea, Melena, Hematochezia Genitourinary: Denies: Dysuria, Hematuria, Frequency Musculoskeletal: Reports: Arthralgias. Denies: Neck pain, Back pain, Swelling Skin: Denies: Rash, Wounds Neurological: Denies: Headache, Weakness, Parasthesia, Numbness Psych: Denies: Anxiety, Suicidal thoughts Endocrine: Denies: Polyuria, Polydipsia Hematologic: Denies: Easy bruising, Easy bleeding Allergy: Denies: Swelling of the mouth, Swelling of the tongue Physical Exam Vital Signs/Narrative: Vital Signs 05/24/18 12:06 86 83 99 05/24/18 12:00 84 14 158/69 H 05/24/18 11:41 97.8 F 89 16 174/98 H 05/24/18 12:06 176/96 H 186/89 H 196/120 H 05/24/18 12:00 95 05/24/18 11:41 95 Inital Vital Signs reviewed: Yes General: Well nourished, Well developed, Obese, - - well-appearing, nad Head: Normocephalic, Atraumatic Eyes: Perrl, EOMI ENT: Moist mucous membranes, No rhinorrhea. Negative for: Nasal congestion Neck: Supple, Nontender, No lymphadenopathy, No JVD Cardiovascular: Regular rate, Regular rhythm, No murmurs Respiratory: No distress, CTA bilaterally, Chest nontender Abdomen: Soft, Nontender, Nondistended, Normal bowel sounds Back: Nontender, Normal Inspection. Negative for: CVA tenderness Extremities: Nontender, No edema Skin: Normal color, No rash Neurological: Alert, Oriented x3, Cranial nerves II-XII grossly intact, Normal Strength, Normal Sensation Psychological: Normal affect Diagnostic/Tx/Re-eval Impressions Chest X-Ray 05/24/18 12:27 IMPRESSION: Elevation of the right hemidiaphragm. Electronically Signed: Lokesh Wilson MD at 13:37 EST Tel [phone], Service support , 05/24/18 12:27 Chest PA and Lateral [RAD] Stat Laboratory Results WBC RBC Hgb Hct MCV MCH MCHC RDW RDW Differential - Rhythm Strip Rhythm Strip: Sinus Rhythm Rate: 75 Ectopy: None - EKG Initial EKG Interpretation: Sinus Rhythm, No Acute Injury Pattern - Normal EKG - Medical Decision Making Labs are normal including her sodium at 140. Her calcium was low out on outpatient labs, that is normal on our labs today also. I discussed with Dr. Glass, we agreed this was probably lab error from the labs yesterday, she appeared to have cholesterol checked that were normal too including triglycerides, she appears to be euvolemic. Also, urine was unremarkable, her BNP is 16, well within normal limits. I think she can be discharged home with close outpatient follow-up for reevaluation of her blood pressure. She is comfortable with that plan. ED Disposition - Plan for ED Patient: Disposition: Home or Assisted Living Chief Complaint: Abn Labs Diagnosis: Fatigue, Dyspnea on exertion, Accelerated hypertension Instructions: ED Weakness UKO, ED HTN Established Referrals: Richard Glass MD [Primary Care Provider] - 1 Week if not improving What to do if you have Problems For any increased pain, shortness of breath, bleeding, nausea or vomiting, chest pain, or any unexpected problems, contact your Primary Care Provider. Call [facility] ([phone]) or report to the closest Emergency Room. Call 911 if necessary. 05/24/18 0380 <Electronically signed by Jomar Reeves MD> Date Jomar Reeves MD Cosigner Signature (If Indicated): Date CC: Richard Glass MD URINALYSIS, COMPLETE Collected: 05/24/2018 Status: F Source: [place] 2:17 PM [facility] REPOSITORY Order Comment: Order Date: 05/24/18 Has pt arrived? Y How was Urine Obtained? CLEAN CATCH TYPE CODE TESTS RESULT OUT OF RANGE REFERENCE UNITS LAB L400.3000 Yellow COLOR Normal Yellow LAB L400.3050 Clear Normal CLARITY Clear LAB L400.3200 Normal mg/dl Normal GLUCOSE, UR Normal LAB L400.3300 Negative mg/dL Normal BILIRUBIN URINE Negative LAB L400.3400 Negative mg/dl Normal KETONE UR Negative LAB L400.3465 1.002-1.030 Normal SP.GR. DIPSTX 1.005 LAB L400.3550 5.0 - 8.0 pH UR Normal 7.0 LAB L400.3600 Negative mg/dl PROT Normal DIPSTX Negative LAB L400.3700 Normal mg/dl Normal UROBILI Normal LAB L400.3750 Negative Normal NITRITE UR Negative LAB L400.3780 Negative /ul High 10 OCCULT BLOOD-UR LAB L400.3800 Negative /ul LEUK Normal ESTERASE Negative LAB L400.4050 0-5 /hpf WBC 0 Normal SEEN LAB L400.4100 0-5 /hpf Normal RBC-UA 0-5 SEEN LAB L400.4150 5-10 /hpf SQUAM 0 Normal EPI SEEN LAB L400.4300 None Seen /hpf 0 Normal BACTERIA SEEN LAB L400.4350 <or=2+ /hpf 0 Normal MUCUS, URINE SEEN Performed By: #### L400.0001 #### [facility] [address] [place], [address] CBC W/DIFF, AUTOMATED Collected: 05/24/2018 Status: F Source: [place] 12:55 PM [facility] REPOSITORY TYPE CODE TESTS RESULT OUT OF RANGE REFERENCE UNITS LAB L100.1000 4.4-11.0 K/mm3 Normal WBC 6.1 LAB L100.1200 4.2-5.4 M/mm3 Normal RBC 4.22 LAB L100.1300 12.0-15.0 g/dl Normal HGB 13.5 LAB L100.1400 37-47 % Normal HCT 41.7 LAB L100.1500 81-99 fL Normal MCV 98.8 LAB L100.1600 27.0-32.0 pg Normal MCH 32.0 LAB L100.1700 32-36 g/gl Normal MCHC 32.4 LAB L100.1810 11.6-14.6 % Normal RDW CV 12.8 LAB L100.1820 35.1-43.9 fl High RDW SD 45.3 LAB L100.1900 150-450 K/mm3 Normal PLT 214 LAB L100.2000 6.2-12.0 fl Normal MPV 10.8 LAB L100.2100 47-70 % Low NEUT% 45.2 LAB L100.2200 19-41 % Normal LY% 39.1 LAB L100.2300 0-10 % High MONO% 10.1 LAB L100.2400 0-5 % Normal EO% 4.4 LAB L100.2500 0-1 % Normal BASO% 1.0 LAB L100.2550 0.0-0.9 % Normal IM GRAN % 0.200 Result Comment: IG% - Immature Granulocytes (promyelocytes, myelocytes and metamyelocytes) > 1% indicates that a LEFT SHIFT is Present. LAB L100.2620 2.0-7.7 X10 3/uL Normal Absolute Neut 2.8 LAB L100.2720 0.83-4.51 X10 3/ul Normal Absolute Lymph 2.39 Performed By: #### L100.0100 #### [facility] [address] [place], [address] BASIC METABOLIC Collected: 05/24/2018 Status: F Source: [place] PROFILE ([facility]) 12:55 PM [facility] REPOSITORY Order Comment: 'TROP' Serial specimen #1, #2, #3, or #4: 1 TYPE CODE TESTS RESULT OUT OF RANGE REFERENCE UNITS LAB L501.0100 74-106 mg/dL High GLU 111 Result Comment: Fasting Glucose result from 100 to 125 mg/dL suggests IMPAIRED HOMEOSTASIS per A.D.A. criteria. Please note revised GLUCOSE reference range effective 2017. LAB L501.1000 7-18 mg/dL Normal BUN 17 LAB L501.1100 0.55-1.02 mg/dL Normal CREAT,SERUM 0.65 Result Comment: The validity of the calculated GFR AND GFRAA in patients over 70 years has not been determined. Clinical correlation is essential. LAB L501.1110 >60 mL/min Normal EST GFR 96 Result Comment: Non- GFR Calc LAB L501.1115 >60 mL/min Normal EST GFR - AA 116 Result Comment: GFR Calc LAB L501.1255 ml/min Normal Estimated CRCL 45.85 LAB L501.1300 10-20 RATIO High BUN/CRE 26.2 LAB L501.2200 8.5-10 mg/dL Normal .1 CA 8.8 LAB L501.5300 136-14 mmol/L Normal 5 NA 140 LAB L501.5600 3.5-5. mmol/L Normal 1 K 4.4 LAB L501.5900 98-107 mmol/L Normal CL 106 LAB L501.6100 21.0-3 mmol/L Normal 2.0 CO2 30.0 LAB L501.6200 5-15 Low GAP 4 Performed By: #### L500.2500, L501.4010 #### [facility] [address] [place], [place], [address] TROPONIN-I Collected: 05/24/2018 Status: F Source: [place] 12:55 PM [facility] REPOSITORY Order Comment: 'TROP' Serial specimen #1, #2, #3, or #4: 1 TYPE CODE TESTS RESULT OUT OF RANGE REFERENCE UNITS LAB L501.4010 <0.045 ng/mL Normal < 0.015 TROPONIN-I Result Comment: TROPONIN-I EXPECTED VALUES <0.045 Negative 0.045 - 0.590 Consistent with Cardiac Damage > OR = 0.600 Critical Value Not every elevated troponin is indicative of [place]. These values should be used with clinical judgement in examining the patient's clinical picture for diagnosis. To establish a diagnosis of [place] versus myocardial injury, there must be a demonstrated rise and/or fall in the troponin values, in addition to ischemic symptoms, EKG changes, new regional wall motion abnormality, and/or angiographical evidence. PLEASE NOTE: REFERENCE RANGES EDITED 17 Performed By: #### L500.2500, L501.4010 #### [facility] [address] [place], [address] BNP,B-TYPE NATRIURETIC Collected: 05/24/2018 Status: F Source: [place] 12:55 PM [facility] REPOSITORY TYPE CODE TESTS RESULT OUT OF RANGE REFERENCE UNITS LAB L503.6620 0-100 pg/mL Normal B-TYPE 18.7 TASIA PEP Performed By: #### L503.6620 #### [facility] [address] [place], [address] CHEST PA AND LATERAL Observed: 05/24/2018 Status: F Source: [place] 12:29 PM [facility] REPOSITORY [facility] Imaging Services [address] [place] [address] Chest PA and Lateral MR#: [id number] Acct: [id number] Name: CHELA SIU Rep #: [id number] : 1950 F 67 From: Lokesh Wilson MD PCP: Richard Glass MD Status: REG ER Study: Chest PA and Lateral Date of Exam: 05/24/18 Exam# [id number] Ordering Dr: Jomar Reeves MD STUDY: X-RAY CHEST REASON FOR EXAM: Female, 67 years old. Fatigue. Hyponatremia. TECHNIQUE: PA and lateral views of the chest. COMPARISON: None. FINDINGS: EKG electrodes are seen. There is elevation of the right hemidiaphragm. Scattered calcified granulomas. There is no demonstrated pleural abnormality. There is mild cardiac enlargement. Normal mediastinum and britni. Normal visualized pulmonary arteries. There is atherosclerotic calcification of the aortic arch with tortuosity. There are diffuse degenerative changes of the visualized thoracic spine. There is degenerative osteoarthritis of the bilateral shoulders. There is no demonstrated abnormality of the visualized soft tissue structures of the upper abdomen. RAD/Chest PA and Lateral IMPRESSION: Elevation of the right hemidiaphragm. Electronically Signed: Lokesh Wilson MD at 13:37 EST Tel [phone], Service support , CC: JOMAR REEVES MD; Richard Glass MD Tire Builder: Signed COMP METABOLIC PANEL Collected: 05/23/2018 Status: F Source: [place] 10:57 AM [facility] REPOSITORY TYPE CODE TESTS RESULT OUT OF REFERENCE UNITS RANGE LAB TP 6.3-8.0 g/dL Protein, Total 6.3 LAB ALB 3.9-4.9 g/dL Low Albumin 3.3 LAB CA 8.5-10.2 mg/dL Low Calcium, Total 7.8 LAB TBIL 0.2-1.3 mg/dL Bilirubin, Total 0.4 LAB ALKP 34-123 U/L Alkaline Phosphatase 56 LAB AST 13-35 U/L AST High 83 LAB GLU 74-99 mg/dL Glucose 91 Result Comment: The [place] Diabetes Association (ADA) provides guidance for cutoff values for fasting glucose and random glucose. The ADA defines fasting as no caloric intake for at least 8 hours. Fas ting plasma glucose results between 100 to 125 mg/dL indicate increased risk for diabetes (prediabetes). Fasting plasma glucose results greater than or equal to 126 mg/dL meet the criteria for diagnosis of diabetes. In the absence of unequivocal hyperglycemia, results should be confirmed by repeat testing. In a patient with classic symptoms of hyperglycemia or hyperglycemic crisis, random plasma glucose results greater than or equal to 200 mg/dL meet the criteria for diagnosis of diabetes. Reference: Standards of Medical Care in Diabetes 2016, [place] [employer] Association. Diabetes Care. 2016.39(Suppl 1). LAB BUN 7-21 mg/dL BUN 12 LAB CRET 0.58-0.96 mg/dL Creatinine Low 0.55 LAB NA 136-144 mmol/L Sodium Low 116 Result Comment: Called to: Omer Lam 05/24/18 0744 A.Bias LAB K 3.7-5.1 mmol/L Potassium 4.0 LAB CL 97-105 mmol/L Low Chloride 82 LAB CO2 22-30 mmol/L CO2 23 LAB AGAP 9-18 mmol/L Anion Gap 11 LAB ALT 7-38 U/L ALT High 83 LAB GFRAA eGFR- Amer. >60 LAB GFRNAA . eGFR-All Other Races >60 Result Comment: eGFR (Estimated GFR) Units of measure: mL/min/1.73 meters squared eGFR is derived from the reexpressed MDRD Study equation using the following parameters: serum creatinine, age, gender and race. The creatinine assay has been calibrated to be traceable to IDMS. An eGFR <60 mL/min/1.73m2 for >3 months is consistent with chronic kidney disease. Refer to KDOQI guidelines for clinical interpretation. In patients with unstable renal function, e.g. those with acute kidney injury, the eGFR may not accurately reflect actual GFR. Performed By: #### CMP, LIPB #### [facility] [address] [place] [id number] LIPID PANEL, BASIC Collected: 05/23/2018 Status: F Source: [place] 10:57 AM [facility] REPOSITORY TYPE CODE TESTS RESULT OUT OF REFERENCE UNITS RANGE LAB CHOL <200 mg/dL Cholesterol 138 Result Comment: <200 mg/dL, Desirable 200-239 mg/dL, Borderline high >239 mg/dL, High LAB TRIGLY <150 mg/dL Triglyceride 118 Result Comment: <150 mg/dL, Normal 150-199 mg/dL, Borderline high 200-499 mg/dL, High >499 mg/dL, Very high LAB HDL >39 mg/dL HDL-Cholesterol 46 Result Comment: 40-59 mg/dL, Acceptable >59 mg/dL, High: Negative risk factor for coronary heart disease <40 mg/dL, Low: Positive risk factor for coronary heart disease LAB LDL <100 mg/dL LDL-Cholesterol 68 Result Comment: <100 mg/dL, Optimal 100-129 mg/dL, Near optimal/above optimal 130-159 mg/dL, Borderline high 160-189 mg/dL, High >189 mg/dL, Very high Secondary prevention optimal LDL Cholesterol levels are recommended to be < 70 mg/dL LAB NONHDL <130 mg/dL Non HDL Cholesterol 92 Result Comment: <130 mg/dL, Optimal 130-159 mg/dL, Near optimal/above optimal 160-189 mg/dL, Borderline high 190-219 mg/dL, High >219 mg/dL, Very high Secondary prevention optimal non HDL Cholesterol levels are recommended to be < 100 mg/dL LAB FT hrs Fasting Time 12 LAB VLDL <30 mg/dL VLDL Cholesterol 24 LAB TCHDL <5.10 TC:HDL Ratio 3.00 LAB LDLHDL <2.54 LDL:HDL Ratio 1.48 Result Comment: Reference: 1. National Cholesterol Education Program ATP III Guideline At-A-Glance Quick Desk Reference: National Heart, Lung, and Blood [place]. National Institutes of Health. 2001: NIH Publication No. 01-3305. 2. An International Atherosclerosis Society position paper: global recommendations for the management of dyslipidemia: executive summary, Atherosclerosis. 2014: 232(2):410-413. Performed By: #### CMP, LIPB #### [facility] [address] [place], [place] [id number] ALBUMIN/CREAT RATIO Collected: 05/23/2018 Status: F Source: [place] 10:52 AM [facility] REPOSITORY TYPE CODE TESTS RESULT OUT OF REFERENCE UNITS RANGE LAB UCRR 20-300 mg/dL Creatinine,Ur 102.5 ine,Ran LAB UALBR 0.0-23.0 mg/L Albumin Urine 13.3 Random LAB UALBCR 0-30 mg/g Albumin/Creat 13 Ratio Result Comment: 30 to 300 mg/g indicates an increased risk for diabetic nephropathy. Greater than 300 mg/g is consistent with clinical nephropathy. (Am J Kidney Disease 1995, 25:107) Performed By: #### UACR #### [facility] [address], [place] [id number] PROGRESS Observed: 03/15/2018 Status: COMPLETED Source: [place] 1:40 PM [facility] REPOSITORY HNO ID: [id number] Author: Destini (Acid Tender) Podlogar Service: (none) Author Type: Nurse Practitioner Type: Progress Notes Filed: 03/15/2018 2:45 PM Note Text: 03/15/2018 Patient presents with: Refill Request: appointment not until jun , needs refills SUBJECTIVE: This is a 67 year old that is here today for Above Complaints.. DIABETES MELLITUS: Denies excessive thirst or increased frequency of urination, chest pain or dyspnea , numbness, tingling or pain in extremities, new or unusual visual symptoms, low sugar/hypoglycemic reactions, weight loss/gain, lightheadedness/dizziness and bowel changes/loose stools. Follows a diabetic diet some of the time. She is compliant with medication(s) and is tolerating med(s) without any side effects. She reports checking her glucose 2- 3 times a week- usually fasting and runs 117-120's. Patient's last HgA1C was No results found for: HBA1C) Last A1c over 2 years ago. [facility] sent kit and will due through them. Last Ophthalmology exam has appointment next month HTN: Patient is compliant with meds Yes Monitors bp at home: Yes. 110/70 Denies side effects: Yes. Chest pain: No. Dyspnea: No. Edema: No. Palpitations: No. Syncope: No. Headache: No. Dizziness: No. Depression: takes Prozac -works good in summer. Usually winter feels more depressed. Denies HI or SI. Feels good right know staying busy svetlana. Will discuss with Dr. Glass in June is feeling more depressed CPAP : using nightly setting of 9. Does FOBT yearly through [facility]. Has kit at home to send in. Declines flu shot today. PAST MEDICAL HISTORY Diagnosis Date - DM (diabetes mellitus screen) - DM2 (diabetes mellitus, type 2) (HCC) on oral medications. - HTN (hypertension) - Knee pain - Morbid obesity (HCC) - DEISY (obstructive sleep apnea) - VTE (venous thromboembolism) 2009 right upper arm, was on coumadin. ALLERGIES Oxybutynin MEDICATIONS Current Outpatient Prescriptions: lisinopril (ZESTRIL, PRINIVIL) 5 mg tablet Take 1 tablet by mouth once daily. metFORMIN (GLUCOPHAGE) 500 mg tablet Take 2 tablets by mouth twice daily with meals. TAKE TWO(2) TABLETS BID FLUoxetine HCl 40 mg capsule Take 40 mg by mouth once daily. glimepiride 1 mg tablet Take 1 mg by mouth twice daily with meals. Cholecalciferol, Vitamin D3, (VITAMIN D) 1,000 unit cap Take 1,000 Units by mouth once daily. CALCIUM CARBONATE (CALCIUM 600 ORAL) Take 2 tablets by mouth once daily. Ascorbic Acid (VITAMIN C) 1,000 mg tablet Take 1,000 mg by mouth once daily. [place]-3 Fatty Acids-Vitamin E (FISH OIL) 1,000 mg cap Take 1 capsule by mouth once daily. CPAP daily at bedtime. VITAMIN B COMPLEX (SUPER B COMPLEX ORAL) Take 1 tablet by mouth once daily. No current facility-administered medications for this visit. Medications and allergies reviewed by this provider. SOCIAL HISTORY Social History Marital status: Spouse name: Years of education: Number of children: Social History Main Topics Smoking status: Former Smoker Packs/day: 0.00 Years: 0.00 Types: Cigarettes Comment: 2 years in the 70s. Alcohol use: No Drug use: No REVIEW OF SYSTEMS GENERAL: No weight loss, malaise or fevers HEENT: Negative for frequent or significant headaches, No changes in hearing or vision, no nose bleeds or other nasal problems NECK: Negative for lumps, goiter, pain and significant neck swelling RESPIRATORY: Negative for cough, hemoptysis, wheezing, COPD, dyspnea or shortness of breath CARDIOVASCULAR: Negative for chest pain, leg swelling, hypertension, CHF or palpitations GI: No nausea, vomiting, or diarrhea and No heartburn or reflux symptoms ENDOCRINE: Negative for cold or heat intolerance, polyuria, polydipsia and goiter All other reviewed and negative other than HPI. OBJECTIVE: BP 136/78 (BP Site: Left Arm, BP Position: Sitting, BP Cuff Size: Large Adult) Pulse 64 Resp 16 Wt 101.2 kg (223 lb 1.3 oz) BMI 39.83 kg/m? . Vital signs reviewed by this provider. APPEARANCE Well appearing, alert, in no acute distress, well-hydrated, well nourished. and Overweight NECK Supple, no adenopathy; thyroid symmetric, normal size, no bruits HEART RRR with normal S1 and S2, no murmurs, no gallops, no JVD appreciated LUNG clear to auscultation. No wheezes, rhonchi, or rales EXTREMITIES Extremities normal, No deformities, No skin discoloration, No edema and Normal pulses bilaterally. SKIN Skin color, texture, turgor normal, no suspicious rashes or lesions DM foot exam: shoes and socks removed, No deformities, ulcers, calluses, normal distal pulses and sensitive to 10 gm monofilament ASSESSMENT/PLAN: 1. Type 2 diabetes mellitus without complication, without long-term current use of insulin (HCC) - ICD9: 250.00, ICD10: E11.9 (primary diagnosis) The patient is new to me. - Continue current medications - Check HgA1C and fasting lipid panel - Blood glucose monitoring on a once a day schedule - Daily Asprin therapy recommended - BP goal of <130/80 - LDL goal of <100 - COMP METABOLIC PANEL - ALBUMIN/CREAT RATIO RND UR - METFORMIN 500 MG TABLET - instructed to call when gets A1c results through [email or web address] 2. DEISY (obstructive sleep apnea) - ICD9: 327.23, ICD10: G47.33 - stable - continue CPAP 3. Essential hypertension - ICD9: 401.9, ICD10: I10 - good control - Encouraged dietary sodium restriction/DASH diet - Recommended regular aerobic exercise. - Recommend home blood pressure monitoring, to bring results in on next visit - Discussed need and benefit for weight loss. - Goal of BP <140/90 - Recommended no refined sugar, low refined starch, healthy oil intake (olive oil), healthy protein (fish) along the lines of the Mediterranean diet. - LISINOPRIL 5 MG TABLET 4. Morbid obesity (HCC) - ICD9: 278.01, ICD10: E66.01 - Lengthy discussion in office today regarding diet and exercise. Discussed use of small plate to eat meals from, drink 1 glass of water 10-15 minutes prior to eating meal, drink 8 glasses of water daily, eat fresh fruit and vegetable during meal first then lean protein such as grilled/baked chicken breast or fish, limit carbohydrate intake (less pasta, breads, rice and snack foods) as well as limiting sugars (desserts etc). Important to count / track your calories and exercise as well. 5. Screening for hyperlipidemia - ICD9: V77.91, ICD10: Z13.220 - LIPID PANEL BASIC Destini Podlogar, FIELD HEALTH OFFICER.[employer]OT[employer] NOTES DEVELOPER Prescription instructions reviewed with patient as applicable. Patient advised if symptoms do not improve or if symptoms worsen sooner, to contact their primary care physician. Potential red flag symptoms discussed with the patient. Reviewed appropriate action plan to take if red flag symptoms occur. Patient agreeable to treatment plan. LUCRECIAOV Observed: 03/15/2018 Status: COMPLETED Source: [place] 1:40 PM [facility] REPOSITORY [facility] CHELA SIU ([id number]) 1950 F Date Time Provider Department 03/15/18 1:40 PM DESTINI SILVA (SAÚL SHANE During your visit today, we recorded the following information about you: Pulse Respiration Blood pressure Weight 64/minute 16/minute 136/78 101.2 kg Destini Silva APRN.CNP 03/15/2018 2:45 PM Signed 03/15/2018 Patient presents with: Refill Request: appointment not until jun , needs refills SUBJECTIVE: This is a 67 year old that is here today for Above Complaints.. DIABETES MELLITUS: Denies excessive thirst or increased frequency of urination, chest pain or dyspnea , numbness, tingling or pain in extremities, new or unusual visual symptoms, low sugar/hypoglycemic reactions, weight loss/gain, lightheadedness/dizziness and bowel changes/loose stools. Follows a diabetic diet some of the time. She is compliant with medication(s) and is tolerating med(s) without any side effects. She reports checking her glucose 2- 3 times a week- usually fasting and runs 117-120's. Patient's last HgA1C was No results found for: HBA1C) Last A1c over 2 years ago. [facility] sent kit and will due through them. Last Ophthalmology exam has appointment next month HTN: Patient is compliant with meds Yes Monitors bp at home: Yes. 110/70 Denies side effects: Yes. Chest pain: No. Dyspnea: No. Edema: No. Palpitations: No. Syncope: No. Headache: No. Dizziness: No. Depression: takes Prozac -works good in summer. Usually winter feels more depressed. Denies HI or SI. Feels good right know staying busy svetlana. Will discuss with Dr. Glass in June is feeling more depressed CPAP : using nightly setting of 9. Does FOBT yearly through [facility]. Has kit at home to send in. Declines flu shot today. PAST MEDICAL HISTORY Diagnosis Date - DM (diabetes mellitus screen) - DM2 (diabetes mellitus, type 2) (HCC) on oral medications. - HTN (hypertension) - Knee pain - Morbid obesity (HCC) - DEISY (obstructive sleep apnea) - VTE (venous thromboembolism) 2009 right upper arm, was on coumadin. ALLERGIES Oxybutynin MEDICATIONS Current Outpatient Prescriptions: lisinopril (ZESTRIL, PRINIVIL) 5 mg tablet Take 1 tablet by mouth once daily. metFORMIN (GLUCOPHAGE) 500 mg tablet Take 2 tablets by mouth twice daily with meals. TAKE TWO(2) TABLETS BID FLUoxetine HCl 40 mg capsule Take 40 mg by mouth once daily. glimepiride 1 mg tablet Take 1 mg by mouth twice daily with meals. Cholecalciferol, Vitamin D3, (VITAMIN D) 1,000 unit cap Take 1,000 Units by mouth once daily. CALCIUM CARBONATE (CALCIUM 600 ORAL) Take 2 tablets by mouth once daily. Ascorbic Acid (VITAMIN C) 1,000 mg tablet Take 1,000 mg by mouth once daily. [place]-3 Fatty Acids-Vitamin E (FISH OIL) 1,000 mg cap Take 1 capsule by mouth once daily. CPAP daily at bedtime. VITAMIN B COMPLEX (SUPER B COMPLEX ORAL) Take 1 tablet by mouth once daily. No current facility-administered medications for this visit. Medications and allergies reviewed by this provider. SOCIAL HISTORY Social History Marital status: Spouse name: Years of education: Number of children: Social History Main Topics Smoking status: Former Smoker Packs/day: 0.00 Years: 0.00 Types: Cigarettes Comment: 2 years in the 70s. Alcohol use: No Drug use: No REVIEW OF SYSTEMS GENERAL: No weight loss, malaise or fevers HEENT: Negative for frequent or significant headaches, No changes in hearing or vision, no nose bleeds or other nasal problems NECK: Negative for lumps, goiter, pain and significant neck swelling RESPIRATORY: Negative for cough, hemoptysis, wheezing, COPD, dyspnea or shortness of breath CARDIOVASCULAR: Negative for chest pain, leg swelling, hypertension, CHF or palpitations GI: No nausea, vomiting, or diarrhea and No heartburn or reflux symptoms ENDOCRINE: Negative for cold or heat intolerance, polyuria, polydipsia and goiter All other reviewed and negative other than HPI. OBJECTIVE: BP 136/78 (BP Site: Left Arm, BP Position: Sitting, BP Cuff Size: Large Adult) Pulse 64 Resp 16 Wt 101.2 kg (223 lb 1.3 oz) BMI 39.83 kg/m? . Vital signs reviewed by this provider. APPEARANCE Well appearing, alert, in no acute distress, well- hydrated, well nourished. and Overweight NECK Supple, no adenopathy; thyroid symmetric, normal size, no bruits HEART RRR with normal S1 and S2, no murmurs, no gallops, no JVD appreciated LUNG clear to auscultation. No wheezes, rhonchi, or rales EXTREMITIES Extremities normal, No deformities, No skin discoloration, No edema and Normal pulses bilaterally. SKIN Skin color, texture, turgor normal, no suspicious rashes or lesions DM foot exam: shoes and socks removed, No deformities, ulcers, calluses, normal distal pulses and sensitive to 10 gm monofilament ASSESSMENT/PLAN: 1. Type 2 diabetes mellitus without complication, without long-term current use of insulin (HCC) - ICD9: 250.00, ICD10: E11.9 (primary diagnosis) The patient is new to me. - Continue current medications - Check HgA1C and fasting lipid panel - Blood glucose monitoring on a once a day schedule - Daily Asprin therapy recommended - BP goal of <130/80 - LDL goal of <100 - COMP METABOLIC PANEL - ALBUMIN/CREAT RATIO RND UR - METFORMIN 500 MG TABLET - instructed to call when gets A1c results through [facility] 2. DEISY (obstructive sleep apnea) - ICD9: 327.23, ICD10: G47.33 - stable - continue CPAP 3. Essential hypertension - ICD9: 401.9, ICD10: I10 - good control - Encouraged dietary sodium restriction/DASH diet - Recommended regular aerobic exercise. - Recommend home blood pressure monitoring, to bring results in on next visit - Discussed need and benefit for weight loss. - Goal of BP <140/90 - Recommended no refined sugar, low refined starch, healthy oil intake (olive oil), healthy protein (fish) along the lines of the Mediterranean diet. - LISINOPRIL 5 MG TABLET 4. Morbid obesity (HCC) - ICD9: 278.01, ICD10: E66.01 - Lengthy discussion in office today regarding diet and exercise. Discussed use of small plate to eat meals from, drink 1 glass of water 10- 15 minutes prior to eating meal, drink 8 glasses of water daily, eat fresh fruit and vegetable during meal first then lean protein such as grilled/baked chicken breast or fish, limit carbohydrate intake (less pasta, breads, rice and snack foods) as well as limiting sugars (desserts etc). Important to count / track your calories and exercise as well. 5. Screening for hyperlipidemia - ICD9: V77.91, ICD10: Z13.220 - LIPID PANEL BASIC Destini Podlogar, FIELD HEALTH OFFICER.[facility] Prescription instructions reviewed with patient as applicable. Patient advised if symptoms do not improve or if symptoms worsen sooner, to contact their primary care physician. Potential red flag symptoms discussed with the patient. Reviewed appropriate action plan to take if red flag symptoms occur. Patient agreeable to treatment plan. Referring Provider: SELF [[id number]] Allergies As of Date: 03/15/2018 Noted Allergy Reaction OXYBUTYNIN 08/13/2013 14 - Other: See Comments Comments: difficulty swallowing, confusion and agitation Date Reviewed: 03/15/2018 Reviewed by: Destini (David) Podlogar - Fully Assessed Reason for Visit: Refill Request [94] Cmt: appointment not until jun , needs refills Primary Visit Diagnosis:Type 2 diabetes mellitus without complication, without long-term current use of insulin (HCC) [E11.9] Other Visit Diagnoses:DEISY (obstructive sleep apnea) [G47.33] Essential hypertension [I10] Morbid obesity (HCC) [E66.01] Screening for hyperlipidemia [Z13.220] Order(s):COMP METABOLIC PANEL [SQCMP] Order #: [id number] FUTURE LIPID PANEL BASIC [SQLIPB] Order #: [id number] FUTURE ALBUMIN/CREAT RATIO RND UR [SQUACR] Order #: [id number] FUTURE lisinopril (ZESTRIL, PRINIVIL) 5 mg tabletTake 1 tablet by mouth once daily.Disp: 90 tabletRfl: 1 metFORMIN (GLUCOPHAGE) 500 mg tabletTake 2 tablets by mouth twice daily with meals. TAKE TWO(2) TABLETS BIDDisp: 360 tabletRfl: 1 Prescriptions as of 03/15/2018 Sig: LISINOPRIL 5 MG TABLET Take 1 tablet by mouth once d* METFORMIN 500 MG TABLET Take 2 tablets by mouth twice* FLUOXETINE 40 MG CAPSULE Take 40 mg by mouth once mirian* GLIMEPIRIDE 1 MG TABLET Take 1 mg by mouth twice mirian* CHOLECALCIFEROL (VITAMIN D3) * Take 1,000 Units by mouth onc* CALCIUM 600 ORAL Take 2 tablets by mouth once * ASCORBIC ACID (VITAMIN C) 1,0* Take 1,000 mg by mouth once d* OMEGA-3 FATTY ACIDS-VITAMIN E* Take 1 capsule by mouth once * CPAP daily at bedtime. SUPER B COMPLEX ORAL Take 1 tablet by mouth once d* Problem List As Of Date 03/15/2018 Noted Resolved OTHER URINARY INCONTINENCE [N39.498] INVALID FOR* Overflow Incontinence [N39.490] INVALID FOR* Mixed incontinence [N39.46] INVALID FOR* Hematuria [R31.9] INVALID FOR* Female stress incontinence [N39.3] INVALID FOR* Urge incontinence [N39.41] INVALID FOR* DEISY (obstructive sleep apnea) [G47.33] INVALID FOR* HTN (hypertension) [I10] INVALID FOR* Type 2 diabetes mellitus without complication (*INVALID FOR* Morbid obesity (HCC) [E66.01] INVALID FOR* Chronic pain of both knees [M25.561, M25.562, G*INVALID FOR* Deep vein thrombosis (DVT) of upper extremity (*INVALID FOR* Prescriptions ordered this encounter Disp Refills Start End LISINOPRIL 5 MG TABLET 90 t* 1 03/15/2018 Route: ORAL Sig: Take 1 tablet by mouth once daily. METFORMIN 500 MG TABLET 360 * 1 03/15/2018 Route: ORAL Sig: Take 2 tablets by mouth twice daily with meals. TAKE TWO(2) TABLETS BID Medications Discontinued During This Encounter FLUoxetine (PROZAC) 10 mg tablet 03/15/2018 Class: Historical Med Route: ORAL Sig: Take 10 mg by mouth once daily. Takes this along with 20 mg to make a 30 mg dose. Disc: Changing Therapy/Dosage Form FLUoxetine (PROZAC) 20 mg capsule 03/15/2018 Class: Historical Med Route: ORAL Sig: Take 20 mg by mouth once daily. Takes this along with 10 mg to make 30 mg Disc: Changing Therapy/Dosage Form meloxicam (MOBIC) 15 mg tablet 03/15/2018 Class: Historical Med Route: ORAL Sig: Take 15 mg by mouth once daily. Disc: Discontinued by Patient traMADol (ULTRAM) 50 mg tablet 03/15/2018 Class: Historical Med Route: ORAL Sig: Take 50 mg by mouth every 6 hours as needed. Disc: Course of therapy completed traMADol (ULTRAM) 50 mg tablet 20 t* 0 04/08/2016 03/15/2018 Class: Print RX Cmt: Ok to fill on , 04/07/2016 Route: ORAL Sig: Take 1 tablet by mouth every 6 hours as needed for Pain. for pain. Patient not taking: Reported on 03/15/2018 Disc: Course of therapy completed lisinopril (ZESTRIL, PRINIVIL) 5 mg * 03/15/2018 Class: Historical Med Route: ORAL Sig: Take 5 mg by mouth once daily. Disc: Reason for discontinue is not on file. metFORMIN 500 mg ORAL tablet 0 07/05/2010 03/15/2018 Class: Med Update Route: ORAL Sig: Take two(2) tablets bid Disc: Reason for discontinue is not on file. Follow-up and Disposition History Recorded Encounter Status:Closed by DESTINI SILVA CNP on 03/15/18 ALLERGIES ALLERGIES DATE TYPE / CODE NAME / CODE REACTION SEVERITY SOURCE 05/24/2018 Drug trospium/[id number] Shortness of Unknown [place] Allergy/416 93(RXNORM) breath Community [id number]([facility] ED CT) Repository 08/13/2013 DRUG OXYBUTYNIN OTHER: SEE C [facility] INGREDI/[address] [place] [address] [id number]([facility] ED CT) ENCOUNTERS ENCOUNTERS ADMIT/DISCHARGE ACCOUNT ADMITTING ENCOUNTER LOCATION SOURCE NUMBER CLASS 06/26/2018/06/28/19 [id number] Ambulatory [address] Repository 05/24/2018/05/24/20 [id number] Emergency [place] [address] ing:ED Repository 05/23/2018/05/23/20 [id number] Ambulatory [address] Repository 03/15/2018/03/16/20 [id number] Ambulatory [address] Repository PAYERS PAYERS ENCOUNTER GUARANTOR PAYER SUBSCRIBER SOURCE 05/24/2018 ELYSIA Davis Primary CHELA E [place] [id number] [place] Insurance:LUIS COOLB: [facility], MEDICARE PPOPolicy [id number] [facility] [address]Hex: Number: Repository [id number] (HP) Date:[id number] [id number]: 05/24/2018 Secondary NOT GIVENUNK [place] Insurance:SELF PAY [facility] Number: Effective Repository Date:2018-05-24
== END 2018-05-24 15:48 | disposition home or self-care (01) ==
PROVIDERS: Emergency Provider Emergency Medicine; Family Provider Family Medicine; PCP Family Medicine
DX: I10 Essential (primary) hypertension (principal); R53.83 Other fatigue; R06.09 Other forms of dyspnea; Z79.899 Other long term (current) drug therapy
CPT/HCPCS: 71046; 80048; 81001; 83880; 84484; 85025; 93005; 96361; 96374; 99285; J7030; A4216

== ENCOUNTER → 2020-06-09 16:43 | Outpatient (CLI) | payer MEDICARE, SELFPAY ==
--- NOTE | 2020-06-09 16:49 | CT_ITS ---
CT RIGHT LOWER EXTREMITY WITHOUT CONTRAST INDICATION: Preoperative planning for right knee arthroplasty TECHNIQUE: Axial CT imaging was performed of the right hip, knee and ankle using RAYMOND protocol. Sagittal and axial reconstruction images provided. COMPARISON: None FINDINGS: Right hip: There are osteoarthritic changes of the femoral head with marginal osteophyte formation. There is osteoarthritic spur formation of the acetabular rim. There is moderate articular joint space narrowing. Visualized right hemipelvis is unremarkable. Right knee: Marginal osteophyte formation with bony protuberance along the medial femoral condyle some of which could represent prior MCL injury. Marginal spur formation of the medial tibial plateau. There is severe narrowing of the medial compartment joint space. Medial lateral marginal osteophyte formation of the lateral femoral condyle and lateral tibial plateau. There is moderate narrowing of the articular joint space of the lateral knee compartment. Normal proximal tibiofibular articulation. There is no joint effusion. There is severe narrowing of the patellofemoral compartment with marginal osteophyte formation. The quadriceps tendon is grossly normal. The patellar tendon is grossly normal. Normal Hoffa''s fat pad. The soft tissues are unremarkable. Right ankle: Normal visualized distal tibia and fibula. Normal tibiotalar articulation and talar dome. There is a calcaneal enthesophyte. Normal subtalar, talonavicular and calcaneocuboid articulations. Normal navicular-cuneiform, cuneiform tarsal bones and intercuneiform articulations. Normal tarsometatarsal articulations and visualized metatarsi. The soft tissue structures are grossly normal. CT/Extremity Lower without Contra IMPRESSION: 1. Severe right hip osteoarthrosis. 2. Medial and patellofemoral more than lateral compartment osteoarthrosis of the knee. Electronically Signed: Compa Ingram MD (Brooks) at 12:13 EST , Service support ,
== END ==
PROVIDERS: PCP Family Medicine; Referring Provider Orthopaedic Surgery; Visit Provider Orthopaedic Surgery
DX: M17.11 Unilateral primary osteoarthritis, right knee (principal)
CPT/HCPCS: 73700

== ENCOUNTER 2020-06-29 07:44 | Observation (INO) | payer MEDICARE, SELFPAY ==
--- NOTE | 2020-06-24 16:02 | EKG12_ITS ---
Test Reason : PREOP Blood Pressure : / mmHG Vent. Rate : 080 BPM Atrial Rate : 080 BPM P-R Int : 164 ms QRS Dur : 100 ms QT Int : 400 ms P-R-T Axes : 020 054 052 degrees QTc Int : 461 ms Normal sinus rhythm Normal ECG Confirmed by FANTASMA SUBRAMANIAN, HENRY ([id number]), map editor JOEL ROSS ([id number]) on 06/29/2020 10:53:53 AM Referred By: Long Harris Confirmed By:TRISHA MEEK MD
[2020-06-26 17:49] LABS: Prothrombin Time (Protime)PT. 12.5 SECONDS (11.7-14.9)
[2020-06-26 17:51] LABS: Partial Thromboplast Time 27.5 Seconds (24.1-36.2)
[2020-06-29] VITALS (13 sets, daily range): BP systolic 116–157; BP diastolic 37–79; PULSE 84–100; RESP 16–18; TEMP 36.2–36.8; O2SAT 93–100; BMI 43.6; BMI 45.6
--- NOTE | 2020-06-29 | KNEE_PTH ---
PATIENT: JOSLYN TOLLIVER LOC: MS3 U#:[id number] AGE/SX: 69/F ROOM: AZ319 RE06/29/[address]: Dr. Long Harris DO : 1950 BED: 1 DIS: 06/30/2020 SPEC #: [id number] RECD: 06/29/20 13:16 STATUS: NITESH RESingh #: [id number] JAMES: 06/29/20 00:[address]: Long Harris DEPT: SURGICAL PATHOLOGY RECD BY: [place] ENTERED: 06/30/20 07:13 SP TYPE: TOTAL KNEE OTHR DR: Dr. Richard Glass MD Tissues: Knee, NOS Procedures: Decalcification bone/plaque Surgery Specimen Level IV HEADER OPERATION: ERAS, total knee replacement robotic arm assist PRE-OP DIAGNOSIS: Osteoarthritis right knee TISSUE SUBMITTED: Right knee bone and tissue MICROSCOPIC DIAGNOSIS Bone and soft tissue of right knee, total knee resection: Severe degenerative joint disease. AM:ozzie 07/03/2020 MICROSCOPIC DESCRIPTION Slides are reviewed. GROSS DESCRIPTION Received is one container designated bone and soft tissue right knee. The specimen consists of multiple fragments of cisneros-yellow bone measuring in aggregate 12 x 11 x 4 cm. Also in the specimen container are multiple fragments of yellow-white soft tissue measuring in aggregate 7 x 1 x 1 cm and consists of fibrocartilaginous tissue. A number of bony fragments contain articular surfaces consistent with tibial plateau and femoral condyle and displaying prominent osteophyte formation, eburnation and bone erosion. Mining Speculator sections are submitted in two cassettes as follows: 1 - soft tissue, 2 - bone after decalcification. / SJ:ozzie 06/30/20 TC:5 [facility]: [id number], [id number]
[2020-06-29] MEDS: Acetaminophen 500 MG Tablet 1000 MG PO ×3 (06:29→22:28)
[2020-06-29] MEDS: Gabapentin 600 MG Tablet PO (06:29)
[2020-06-29 06:30] LABS: Bedside Glucose 267 mg/dL (70-110)
[2020-06-29] MEDS: Insulin Lispro 100 UNIT/ML INSULN.PEN SC (06:31)
--- NOTE | 2020-06-29 09:28 | PCM.OPRPT ---
Report of Operation Date of Procedure: 06/29/20 Pre-Operative Diagnosis: OA right knee Post-Operative Diagnosis: same Surgery/Procedure Performed:: Right TKR opener verifier packer customs: [place] Type of Anesthesia:: Spinal Anesthesiologist: Bennett Evangelista - Admdavon VTE Documentation VTE Present on Admission: No VTE Mechan Device Prophylaxis: SCD's, Thigh High CHENCHO Hose VTE Pharm Prophylaxis ordered?: Yes
[2020-06-29 10:36] LABS: Bedside Glucose 166 mg/dL (70-110)
[2020-06-29 10:39] LABS: Hematocrit 37.4 % (37-47); Hemoglobin 11.7 g/dL (12.0-15.0); Mean Corp Hgb Conc 31.3 g/dL (32-36); Mean Corpuscular Hgb 31.5 pg (27.0-32.0); Mean Corpuscular Volume 100.8 fL (81-99); Platelet Count 240 K/mm3 (150-450); RBC Distribution Width CV 12.9 % (11.6-14.6); RBC Distribution Width SD 47.6 fl (35.1-43.9); Red Blood Count 3.71 M/mm3 (4.2-5.4); White Blood Count 11.9 K/mm3 (4.4-11.0)
--- NOTE | 2020-06-29 10:40 | RAD_ITS ---
STUDY: X-RAY - RIGHT KNEE REASON FOR EXAM: Female, 69 years old. POST OP RIGHT KNEE TECHNIQUE: 2 view(s) of the knee. COMPARISON: None. Status post total knee arthroplasty. Surgical hardware intact/well aligned. No acute complications. Postoperative soft tissues with staple line. RAD/Knee 1 or 2 Views IMPRESSION: Uncomplicated right knee arthroplasty Electronically Signed: Cheng Kenny DO at 11:15 EST Tel , Service support ,
[2020-06-29 10:52] LABS: Anion Gap 7 (5-15); BUN 13 mg/dL (7-18); BUN/Creat Ratio 16.4 RATIO (10-20); Calcium,Total 8.5 mg/dL (8.5-10.1); Chloride 108 mmol/L (98-107); Creatinine, Serum 0.79 mg/dL (0.55-1.02); EST Glomerular Filtration Rate 76 mL/min (>60); Est Glom Filt Rate - Afr Amer 92 mL/min (>60); Estimated Creatinine Clearance 44.56 ml/min; Glucose 157 mg/dL (74-106); Potassium 4.1 mmol/L (3.5-5.1); Sodium Level 142 mmol/L (136-145)
[2020-06-29] MEDS: Cefazolin 1 GM/50 ML BAG IV ×2 (14:17→22:27)
[2020-06-29] MEDS: FLUoxetine 20 MG Capsule 40 MG PO (14:18)
[2020-06-29] MEDS: metFORMIN HCl 1,000 MG Tablet 1000 MG PO (17:26)
[2020-06-29] MEDS: Glimepiride 1 MG Tablet PO (17:28)
[2020-06-29] MEDS: oxyCODONE 5 MG Tablet PO (20:49)
[2020-06-29] MEDS: Atorvastatin Calcium 20 MG Tablet PO (22:28)
[2020-06-29] MEDS: Aspirin 81 MG TAB.CHEW PO (22:28)
[2020-06-29] MEDS: Senna/Docusate Sodium 1 Tablet 2 TABLET PO (22:28)
[2020-06-29] MEDS: MELATONIN 10 MG TABLET PO (22:28)
[2020-06-29] MEDS: 0.9% Saline Lock 10 ML Syringe IV (22:28)
[2020-06-30 03:25] VITALS: BP 152/61; PULSE 87; RESP 18; TEMP 36.8; O2SAT 96
[2020-06-30] MEDS: oxyCODONE 5 MG Tablet PO ×4 (03:57→11:20)
[2020-06-30] MEDS: Acetaminophen 500 MG Tablet 1000 MG PO ×2 (06:39→13:57)
[2020-06-30 07:10] LABS: Hemoglobin 11.8 g/dL (12.0-15.0); Mean Corp Hgb Conc 31.9 g/dL (32-36); Mean Corpuscular Hgb 31.6 pg (27.0-32.0); Mean Corpuscular Volume 98.9 fL (81-99); Mean Platelet Vol. 11.6 fl (6.2-12.0); Platelet Count 202 K/mm3 (150-450); RBC Distribution Width CV 12.9 % (11.6-14.6); RBC Distribution Width SD 46.1 fl (35.1-43.9); Red Blood Count 3.74 M/mm3 (4.2-5.4); White Blood Count 10.3 K/mm3 (4.4-11.0)
[2020-06-30 07:21] LABS: Anion Gap 6 (5-15); BUN 15 mg/dL (7-18); BUN/Creat Ratio 22.2 RATIO (10-20); Calcium,Total 8.4 mg/dL (8.5-10.1); Chloride 104 mmol/L (98-107); Creatinine, Serum 0.68 mg/dL (0.55-1.02); EST Glomerular Filtration Rate 91 mL/min (>60); Est Glom Filt Rate - Afr Amer 110 mL/min (>60); Estimated Creatinine Clearance 44.56 ml/min; Glucose 164 mg/dL (74-106); Sodium Level 136 mmol/L (136-145)
--- NOTE | 2020-06-30 07:45 | PCM.PN.ORT ---
Subjective: Patient sitting up in bed, states her knee was extremely painful approximately 2 hours ago. Patient now states the pain is rated approximately a 4 after her pain medication. Patient denies any chest pain, shortness breath, calf pain, nausea vomiting. Patient has no other complaints at this time. Objective: Dressings clean dry intact. Negative signs and symptoms of DVT. Vital signs labs reviewed noted in the medical record. Patient is in no respiratory distress, speaking in full sentences. Neurovascular patient is otherwise intact. - Physical Exam Vitals/I&O's: Vital Signs Temp Pulse Resp BP Pulse Ox 98.3 F 87 18 152/61 H 96 06/30/20 03:25 06/30/20 03:25 06/30/20 03:25 06/30/20 03:25 06/30/20 03:25 Oxygen Flow Rate (L/min) 6 Oxygen Delivery Method Room Air Weight: 120.5 kg Body Mass Index (BMI) 45.6 Finger Stick Blood Glucose 166 Intake and Output for Last 24 Hours 06/28/20 06/29/20 06/30/20 23:59 23:59 23:59 Intake Total 1442 / 1442 500 / 500 Output Total 1150 / 1150 300 / 300 Balance 292 / 292 200 / 200 General: Alert, Oriented x3, Cooperative HEENT: PERRLA Oral: Moist Mucosa Neurological: Cranial nerves II-XII grossly intact Psych/Mental Status: Normal Affect, Alert and oriented to time, place, person, mood and affect Microbiology Past 72 Hours 06/26/20 15:57 Swab (Method) Nasal Screen MRSA/MSSA - Final Laboratory Results 06/29/20 10:26: WBC 11.9 H, RBC 3.71 L, Hgb 11.7 L, Hct 37.4, MCV 100.8 H, MCH 31.5, MCHC 31.3 L, RDW Std Deviation 47.6 H, RDW Coeff of Krista 12.9, Plt Count 240, MPV 11.0 06/29/20 10:26: Sodium 142, Potassium 4.1, Chloride 108 H, Carbon Dioxide 27.0, Anion Gap 7, BUN 13, Creatinine 0.79, Estim Creat Clear Calc 44.56, Est GFR (MDRD) Af Amer 92, Est GFR (MDRD) Non-Af 76, BUN/Creatinine Ratio 16.4, Glucose 157 H, Calcium 8.5 06/29/20 10:31: POC Glucose 166 H 06/30/20 06:20: WBC 10.3, RBC 3.74 L, Hgb 11.8 L, Hct 37.0, MCV 98.9, MCH 31.6, MCHC 31.9 L, RDW Std Deviation 46.1 H, RDW Coeff of Krista 12.9, Plt Count 202, MPV 11.6 06/30/20 06:20: Sodium 136, Potassium 4.0, Chloride 104, Carbon Dioxide 26.0, Anion Gap 6, BUN 15, Creatinine 0.68, Estim Creat Clear Calc 44.56, Est GFR (MDRD) Af Amer 110, Est GFR (MDRD) Non-Af 91, BUN/Creatinine Ratio 22.2 H, Glucose 164 H, Calcium 8.4 L Current Medications Acetaminophen (Acetaminophen 500 Mg Tablet) 1,000 mg PO Q8H [facility] Last Admin: 06/30/20 06:39 Dose: 1,000 mg Documented by: Ascorbic Acid (Ascorbic Acid 500 Mg Tablet) 500 mg PO DAILY@0800 [facility] Aspirin (Aspirin 81 Mg Tab.Chew) 81 mg PO BID [facility] Last Admin: 06/29/20 22:28 Dose: 81 mg Documented by: Atorvastatin Calcium (Atorvastatin Calcium 20 Mg Tablet) 20 mg PO QHS [facility] Last Admin: 06/29/20 22:28 Dose: 20 mg Documented by: Cholecalciferol (Cholecalciferol (Vit D3) 1,000 Unit (25mcg)) 1,000 unit PO DAILY [facility] Fluoxetine HCl (Fluoxetine 20 Mg Capsule) 40 mg PO DAILY [facility] Last Admin: 06/29/20 14:18 Dose: 40 mg Documented by: Glimepiride (Glimepiride 1 Mg Tablet) [facility] Last Admin: 06/29/20 17:28 Dose: 1 mg Documented by: Sodium Chloride () 250 mls @ 15 mls/hr IV .[id number] PRN PRN Reason: Saline Flush Sodium Chloride () 250 mls @ 15 mls/hr IV .[id number] PRN PRN Reason: Additional IVPB Infusion Insulin Human Lispro (Insulin Lispro 100 Unit/Ml Insuln.Pen) 1 - 6 unit SC Q4H PRN PRN; Protocol PRN Reason: BG>/= 180, SEE PROTOCOL Last Admin: 06/29/20 06:31 Dose: 3 units Documented by: Lisinopril (Lisinopril 10 Mg Tablet) 10 mg PO DAILY [facility] Melatonin (Melatonin 10 Mg Tablet) 10 mg PO QHS [facility] Last Admin: 06/29/20 22:28 Dose: 10 mg Documented by: Metformin HCl (Metformin Hcl 1,000 Mg Tablet) [facility] Last Admin: 06/29/20 17:26 Dose: 1,000 mg Documented by: Ondansetron HCl (Ondansetron 4 Mg/2 Ml Vial) 4 mg IV Q8H PRN PRN PRN Reason: NAUSEA Oxycodone HCl (Oxycodone 5 Mg Tablet) 5 - 10 mg PO Q4H PRN PRN PRN Reason: Pain Score 4-10 Last Admin: 06/30/20 07:18 Dose: 5 mg Documented by: Promethazine HCl (Promethazine 25 Mg/Ml Syringe) 12.5 mg IM Q6H PRN PRN; Protocol PRN Reason: NAUSEA/VOMITING Senna/Docusate Sodium (Senna/Docusate Sodium 1 Tablet) 2 tablet PO BID [facility] Last Admin: 06/29/20 22:28 Dose: 2 tablet Documented by: Sodium Chloride (0.9% Saline Lock 10 Ml Syringe) 10 - 40 ml IV UD PRN PRN Reason: SALINE FLUSH Last Admin: 06/29/20 22:28 Dose: 10 ml Documented by: Medical Necessity - Tobacco Use Smoking Status: Former smoker Tobacco Use: Non-smoker Assessment/Plan Status post right total knee arthroplasty Plan 1. Continue all pain medications as prescribed 2. Continue physical therapy, weight-bear as tolerated with walker 3. Aspirin 81 mg 1 p.o. every 12 hours x30 days for postop DVT prophylaxis 4. Encourage incentive spirometry 5. Patient will continue outpatient physical therapy at [facility] [place] 6. Discharge home today after p.m. therapy
--- NOTE | 2020-06-30 07:54 | DCINST_ITS ---
Discharge Diet: No Restrictions Discharge Activity: May Not Drive, May Shower, Use Walker May shower in (days): 3 Ice area for (Minutes): 20 - each hour while awake. Weight Bearing Status: Weight bearing as tolerated Elevate: Operative Extremity Additional Activity Instructions:: Wear elastic stockings for 2 weeks after your surgery. Call your doctor if your incision/area has: Continuous Slow Oozing, Sudden Increased Bleeding, Increased Pain/ Swelling, Increased Redness, Foul Smelling Discharge Call your doctor if you observe: Fever of 101 or Higher, Coldness, Increased Pain - in extremity, Numbness or Tingling, Change in Color, Calf discomfort, Uncontrolled pain Change Dressing in (Days):: 0 - and daily as needed. Remove Dressing in (days):: 8 Cleanse incision/area with: Soap & Water Allergies/Adverse Reactions: Allergies trospium Adverse Reaction (Verified 06/29/20 06:19) Shortness of breath Medications to take at Discharge Fluoxetine [Prozac] 40 mg PO DAILY 05/18/16 metFORMIN HCl [Glucophage] 1,000 mg PO BIDCM 05/18/16 Ascorbic Acid [Vitamin C] 500 mg PO DAILY 05/24/18 Cholecalciferol (VIT D3) [Vitamin D3] 1,000 unit PO DAILY 05/24/18 Glimepiride [Amaryl] 1 mg PO BID 05/24/18 Lisinopril [Zestril] 10 mg PO DAILY #30 tablet 05/24/18 Melatonin 10 mg PO QHS 05/24/18 Atorvastatin Calcium [Lipitor] 20 mg PO QHS 06/15/20 Acetaminophen [Tylenol] 1,000 mg PO Q8H #90 tab 06/30/20 Aspirin [Aspirin, Baby] 81 mg PO BID #60 tab.chew 06/30/20 Oxycodone [Oxyir] 5 - 10 mg PO Q4H PRN PRN 7 Days #84 tab 06/30/20 Senna/Docusate Sodium [Senokot-S] 2 tablet PO BID tablet 06/30/20 The following prescriptions were given: Aspirin [Aspirin, Baby] 81 mg PO BID #60 tab.chew Transmission Status: Pending to [facility] Oxycodone [Oxyir] 5 - 10 mg PO Q4H PRN PRN 7 Days #84 tab PRN Reason: Pain Score 4-10 Prescription Printed Acetaminophen [Tylenol] 1,000 mg PO Q8H #90 tab Transmission Status: Pending to [facility] Primary Care Physician: Richard Glass MD [Primary Care Provider] - Test Results: Test results from this visit will be discussed in further detail at your follow- up appointment, if applicable. Please Follow Up With: Long Harris, DO When: as scheduled (see pink sheet)
[2020-06-30 08:40] VITALS: PULSE 80
[2020-06-30 08:42] VITALS: BP 157/48; PULSE 80; RESP 18; TEMP 37.3; O2SAT 96
[2020-06-30] MEDS: Ascorbic Acid 500 MG Tablet PO (08:51)
[2020-06-30] MEDS: metFORMIN HCl 1,000 MG Tablet 1000 MG PO (08:51)
[2020-06-30] MEDS: Glimepiride 1 MG Tablet PO (08:51)
[2020-06-30] MEDS: Aspirin 81 MG TAB.CHEW PO (08:51)
[2020-06-30] MEDS: FLUoxetine 20 MG Capsule 40 MG PO (09:54)
[2020-06-30] MEDS: Senna/Docusate Sodium 1 Tablet 2 TABLET PO (09:54)
[2020-06-30] MEDS: Lisinopril 10 MG Tablet PO (09:54)
--- NOTE | 2020-06-30 10:40 | CASEMGMT ---
SIMONA HUFF Face to Face with patient for initial transition planning/care coordination assessment. RN REFUGIO introduced self and role at [facility]. Patient sitting in chair, alert and oriented. Patient willing to participate in assessment and is able to answer all questions appropriately. Care providers, pharmacy, and demographics verified. Patient wishes to discharge home, and is setup for outpatient therapy at [facility]. Patient states she has no further needs or concerns at this time. CM to follow for discharge planning needs that may arise. PCP: Maria Luisa Specialists: anamaria Harris Pharmacy: [facility] Insurance: [employer] [facility] Prescription Benefit: yes Living Will/HPOA: none LNOK: Living Arrangements: Patient lives with in a 2 story home with bed and bath on first floor. Patient states she has 2 steps to enter the home. Patient states she is independent at home. Transportation: , daughter DME/HHC: Patient states she has a walker at home. Patient has outpatient therapy scheduled at [facility]. Disposition Plan: Patient to discharge home with outpatient therapy, family support and follow-up plans in place. Danica GARCIA, RN, CM
--- NOTE | 2020-06-30 12:01 | PHA.DC.MC ---
Pharmacy Service has performed discharge medication reconciliation and counseling for this patient. The patient was counseled on the following discharge medications and changes in medications for homegoing were reviewed. 1. ACETAMINOPHEN 2. OXYCODONE 3. ASPIRIN 4. SENNA/DOCUSATE The Reason for Use, instructions for use, and potential side effects were reviewed for all new medications. The patient's questions regarding all of their medications were answered. The patient was able to verbally demonstrate an understanding of their discharge medications. Home Medications Fluoxetine [Prozac] 40 mg PO DAILY 05/18/16 metFORMIN HCl [Glucophage] 1,000 mg PO BIDCM 05/18/16 Ascorbic Acid [Vitamin C] 500 mg PO DAILY 05/24/18 Cholecalciferol (VIT D3) [Vitamin D3] 1,000 unit PO DAILY 05/24/18 Glimepiride [Amaryl] 1 mg PO BID 05/24/18 Lisinopril [Zestril] 10 mg PO DAILY #30 tablet 05/24/18 Melatonin 10 mg PO QHS 05/24/18 Atorvastatin Calcium [Lipitor] 20 mg PO QHS 06/15/20 Acetaminophen [Tylenol] 1,000 mg PO Q8H #90 tab 06/30/20 Aspirin [Aspirin, Baby] 81 mg PO BID #60 tab.chew 06/30/20 Oxycodone [Oxyir] 5 - 10 mg PO Q4H PRN PRN 7 Days #84 tab 06/30/20 Senna/Docusate Sodium [Senokot-S] 2 tab PO BID tab 06/30/20 The patient's discharge medication list was reviewed for discrepancies and discrepancies were resolved.
[2020-06-30 14:33] VITALS: BP 170/68; PULSE 81; RESP 18; O2SAT 97
== END 2020-06-30 14:57 | disposition home or self-care (01) ==
LOC: MS3 06-30 07:01
PROVIDERS: Anesthesiology; Admitting Provider Orthopaedic Surgery; PCP Family Medicine; Referring Provider Orthopaedic Surgery; Visit Provider Orthopaedic Surgery
PROC: 0SRC0JZ Replacement of Right Knee Joint with Synthetic Substitute, Open Approach (ICD-10-PCS; CPT 27447; principal; 2020-06-29 07:15)
DX: M17.11 Unilateral primary osteoarthritis, right knee (principal); Z20.828 Contact with and (suspected) exposure to other viral communicable diseases; Z87.891 Personal history of nicotine dependence; F41.9 Anxiety disorder, unspecified; F32.9 Major depressive disorder, single episode, unspecified; E11.9 Type 2 diabetes mellitus without complications; E78.00 Pure hypercholesterolemia, unspecified; Z79.899 Other long term (current) drug therapy; I10 Essential (primary) hypertension; G47.30 Sleep apnea, unspecified; Z79.84 Long term (current) use of oral hypoglycemic drugs; Z86.718 Personal history of other venous thrombosis and embolism
CPT/HCPCS: 01400; 27447; 64447; S2900; 36415; 73560; 80048; 82962; 83735; 85027; 85610; 85730; 87081; 87426; 88305; 88311; 93005; 96365; 96366; 97110; 97116; 97162; 97166; 97530; 97535; 99218; 99251; C9803; J7040; J7120; A4216; G0378; G0379; G0463

== ENCOUNTER 2022-05-16 16:10 | Emergency (ER) | payer MEDICARE, SELFPAY ==
[2022-05-16 16:11] VITALS: BP 141/81; PULSE 102; RESP 16; TEMP 36.7; O2SAT 96; BMI 42.0
--- NOTE | 2022-05-16 17:33 | ED.VIS.LOWEX ---
HPI History of Present Illness Chief Complaint: Lower Extremity Injury Narrative Narrative: 71-year-old female presenting with left hip pain. She states that she had this for months. She states that both of her hips hurt. Her left hip hurts worse than the right. She states she sees Dr. Draper for her hips. She is scheduled for hip replacement in August. She states that over the last month the pain has been worse. She reports that she saw Dr. Draper and she had x-rays done at [facility] about a week and a half ago. She states he is not prescribed any narcotic pain medication and did not receive any injections for pain. She states that she is not been referred to pain management. States now the pain is excruciating and she cannot take it. PFSH PFSH Home Medications fluoxetine 20 mg capsule 40 mg PO DAILY DEPRESSION 05/18/16 [History Last Taken 05/24/18] metformin 500 mg tablet 1,000 mg PO BIDCM diabetes 05/18/16 [History Last Taken 05/24/18] ascorbic acid (vitamin C) 500 mg tablet (Vitamin C) 500 mg PO DAILY 05/24/18 [History Last Taken 05/24/18] cholecalciferol (vitamin D3) 25 mcg (1,000 unit) tablet (Vitamin D3) 1,000 unit PO DAILY 05/24/18 [History Last Taken 05/24/18] glimepiride 1 mg tablet 1 mg PO BID diabetes 05/24/18 [History Last Taken 05/24/18] lisinopril 10 mg tablet 10 mg PO DAILY #30 tabs 05/24/18 [Rx Last Taken 06/29/20 05:15 10 MG] melatonin 10 mg sublingual tablet 10 mg PO QHS sleep 05/24/18 [History Last Taken 05/23/18] atorvastatin 20 mg tablet 20 mg PO QHS 06/15/20 [History Last Taken Unknown] acetaminophen 500 mg tablet 1,000 mg PO Q8H #90 tabs 06/30/20 [Rx Last Taken Unknown] aspirin 81 mg chewable tablet 81 mg PO BID ##60 06/30/20 [Rx Last Taken Unknown] sennosides 8.6 mg-docusate sodium 50 mg tablet 2 tab PO BID 06/30/20 [Rx Last Taken Unknown] hydrocodone-acetaminophen 5-325mg 5mg-325mg 1 tab PO Q6H PRN pain 3 days #12 tabs 05/16/22 [Rx Last Taken Unknown] Allergy/AdvReac Type Severity Reaction Status Date / Time trospium AdvReac Shortness Verified 05/16/22 16:11 of breath Social History Smoking Status: Former smoker ROS ROS ED Constitutional Constitutional ED: Denies chills or fever(s) Eyes Eyes: Denies change in vision or diplopia ENT ENT ED: Denies rhinorrhea or sore throat Cardiovascular Cardiovascular: Denies chest pain or palpitations Respiratory/Chest Respiratory/Chest: Denies cough or dyspnea Gastrointestinal Gastrointestinal: Denies abdominal pain or constipation Genitourinary Genitourinary ED: Denies dysuria Musculoskeletal Musculoskeletal: Reports other Details: Bilateral hip pain with the left being worse than the right ; Denies back pain Integumentary Denies abscess or Abrasions Neurologic Neurologic: Denies headache(s) Psychiatric Psychiatric: Denies anxiety or depression EXAM Physical Exam Const Vital Signs: 05/16/22 16:11 Temperature 98.0 F Temperature Source Temporal Pulse Rate 102 H Respiratory Rate 16 Blood Pressure 141/81 H Blood Pressure Mean 101 Pulse Ox 96 Oxygen Delivery Method Room Air Positive well nourished General Appearance ED: NAD HEENT normocephalic and atraumatic Resp normal respiratory effort Cardio regular rhythm Rate: tachycardic Back/Spine no CVA tenderness Extremity Extremity Narrative: Tenderness to palpation of the left hip. There is pain with range of motion. Patient refuses to get into bed and states that her wheelchair so there is limited exam. She is able to pull her self partially up to standing. Neuro oriented x3 and CN's II-XII intact bilaterally Sensorium / Orientation: alert Psych Psych Narrative: Tearful Skin no wounds MDM MDM MDM Narrative Medical decision making narrative: Patient presenting with left hip pain. She was given morphine and Zofran IV. I obtained basic lab work which is normal. X-ray of the left hip on my interpretation shows no acute fracture but there is degenerative changes. The radiologist interprets this and agrees. On reevaluation at 8:36 PM the patient states she feels like a new woman. I will speak to orthopedics regarding pain control for her. She will be having surgery for the next 3 months. I spoke with Dr. Salvador. He recommended Walker for short duration. He recommended only as needed. He recommended follow-up with PCP to manage pain. This was discussed with the patient. She is discharged stable condition. Impression: 1. Degenerative left hip Lab Data Labs: Laboratory Results - last 24 hr 05/16/22 05/16/22 19:04 19:04 WBC 8.9 RBC 4.19 L Hgb 13.3 Hct 40.8 MCV 97.4 MCH 31.7 MCHC 32.6 RDW Std Deviation 45.6 H RDW Coeff of Krista 12.8 Plt Count 220 MPV 10.5 Immature Gran % (Auto) 0.200 Neut % (Auto) 51.7 Lymph % (Auto) 36.7 Sawyer % (Auto) 7.6 Eos % (Auto) 2.9 Baso % (Auto) 0.9 Absolute Neuts (auto) 4.6 Absolute Lymphs (auto) 3.25 Nucleated RBC % 0 Sodium 142 Potassium 3.8 Chloride 111 H Carbon Dioxide 26.0 Anion Gap 5 BUN 19 H Creatinine 0.55 Estim Creat Clear Calc 43.27 Est GFR (MDRD) Af Amer 139 Est GFR (MDRD) Non-Af 115 BUN/Creatinine Ratio 34.5 H Glucose 77 Calcium 9.1 Radiography Diagnostic Testing: Clinical Impression(s) from Imaging Studies Hip/Pelvis X-Ray 05/16/22 17:50 IMPRESSION: Degenerative findings of the hips. Electronically Signed: Bryan Philip MD at 18:17 EST Reading Location ID and State: [facility]– [place] / [place] , Service support , Discharge Plan Triage Chief Complaint: Lower Extremity Injury ED Provider: Larry Correa Dx/Rx/DC Orders Instructions: OA Hip Prescriptions: New hydrocodone-acetaminophen 5-325 mg tablet 1 tab PO Q6H PRN (Reason: pain) 3 Days Qty: 12 0RF No Action metformin 500 MG tablet 1,000 mg PO BIDCM Label Comments: DIABETES fluoxetine 20 MG capsule 40 mg PO DAILY Label Comments: ANTI DEPRESSANT glimepiride 1 MG tablet 1 mg PO BID melatonin 10 MG tablet 10 mg PO QHS ascorbic acid (vitamin C) [Vitamin C] 500 MG tablet 500 mg PO DAILY cholecalciferol (vitamin D3) [Vitamin D3] 1,000 UNIT tablet 1,000 unit PO DAILY lisinopril 10 MG tablet 10 mg PO DAILY Qty: 30 0RF atorvastatin 20 MG tablet 20 mg PO QHS sennosides-docusate sodium 1 TABLET tablet 2 tab PO BID 0RF acetaminophen 500 MG tablet 1,000 mg PO Q8H Qty: 90 0RF aspirin 81 MG tablet,chewable 81 mg PO BID Qty: 60 0RF Primary Care Provider: Richard Glass Referrals: Richard Glass MD [Primary Care Provider] - Disposition Disposition: Home, Self Care
--- NOTE | 2022-05-16 17:50 | RAD_ITS ---
STUDY: X-RAY - PELVIS AND LEFT HIP REASON FOR EXAM: Female, 71 years old. Left hip pain TECHNIQUE: XR Hip Unilateral with Pelvis when performed; 2-3 Views COMPARISON: None. FINDINGS: There is a non-specific bowel gas pattern. Normal visualized soft tissue structures. There are degenerative changes of the lumbar spine. There is a left side sided subcutaneous implanted electronic device with leads extending into the spinal canal. This is likely an SCS (spinal cord stimulator). Normal bilateral iliac wings, sacroiliac joints and visualized sacrum. Normal bilateral superior and inferior pubic rami. Normal pubic symphysis. Normal bilateral ischial tuberosities. Subchondral cysts of the left and right acetabulum. Degenerative findings of the femoral heads. is severe articular joint space narrowing of the hip. RAD/HIP, UNI W/ Pelvis 2-3 Views IMPRESSION: Degenerative findings of the hips. Electronically Signed: Bryan Philip MD at 18:17 EST ,
[2022-05-16] MEDS: 0.9% Normal Saline 1,000 ML 999 ML IV (18:41)
[2022-05-16] MEDS: Morphine 4 MG/ML Syringe IV (18:42)
[2022-05-16] MEDS: Ondansetron 4 MG/2 ML Vial IV (18:42)
[2022-05-16 19:12] LABS: Absolute Lymphocyte Count 3.25 X10^3/uL (0.83-4.51); Absolute Neutrophil Count 4.6 X10^3/uL (2.0-7.7); Basophil# 0.08 X10^3/uL; Basophil% 0.9 % (0-1); Eosinophil# 0.26 X10^3/uL; Eosinophils% 2.9 % (0-5); Hematocrit 40.8 % (37-47); Hemoglobin 13.3 g/dL (12.0-15.0); Lymphocyte # 3.25 X10^3/ul (0.83-4.51); Lymphocyte % 36.7 % (19-41); Mean Corp Hgb Conc 32.6 g/dL (32-36); Mean Corpuscular Hgb 31.7 pg (27.0-32.0); Mean Corpuscular Volume 97.4 fL (81-99); Mean Platelet Vol. 10.5 fl (6.2-12.0); Monocyte# 0.67 X10^3/uL; Monocyte% 7.6 % (0-10); NRBC Flagged by Analyzer 0 % (0-5); Neutrophil # 4.57 X10^3/uL (2.7-7.7); Neutrophil % 51.7 % (47-70); Platelet Count 220 K/mm3 (150-450); RBC Distribution Width CV 12.8 % (11.6-14.6); RBC Distribution Width SD 45.6 fl (35.1-43.9); Red Blood Count 4.19 M/mm3 (4.2-5.4); White Blood Count 8.9 K/mm3 (4.4-11.0)
[2022-05-16 19:26] LABS: Anion Gap 5 (5-15); BUN 19 mg/dL (7-18); BUN/Creat Ratio 34.5 RATIO (10-20); Calcium,Total 9.1 mg/dL (8.5-10.1); Chloride 111 mmol/L (98-107); Creatinine, Serum 0.55 mg/dL (0.55-1.02); EST Glomerular Filtration Rate 115 mL/min (>60); Est Glom Filt Rate - Afr Amer 139 mL/min (>60); Estimated Creatinine Clearance 43.27 ml/min; Glucose 77 mg/dL (74-106); Potassium 3.8 mmol/L (3.5-5.1); Sodium Level 142 mmol/L (136-145)
[2022-05-16 20:10] VITALS: RESP 18
[2022-05-16] MEDS: HYDROcodone Bitartrate/Apap 5/325 Tablet PO (21:30)
--- NOTE | 2022-05-16 21:37 | ED.RN ---
pt required extensive education on pain treatment. encouraged to follow-up with pcp or surgeon for additional pain control. sharon kessler rn [id number]
[2022-05-16 21:38] VITALS: BP 148/74; PULSE 96; RESP 15; O2SAT 95
== END 2022-05-16 21:39 | disposition home or self-care (01) ==
PROVIDERS: Emergency Provider Student in an Organized Health Care Education/Training Program; PCP Family Medicine; Visit Provider Student in an Organized Health Care Education/Training Program
DX: M16.12 Unilateral primary osteoarthritis, left hip (principal); Z87.891 Personal history of nicotine dependence
CPT/HCPCS: 73502; 80048; 85025; 96361; 96374; 96375; 99283; J7030; A4216; J2405

== ENCOUNTER → 2022-07-21 | Outpatient (REF) | payer MEDICARE, SELFPAY ==
[2022-07-21 09:41] LABS: Hematocrit 32.8 % (37-47); Hemoglobin 10.4 g/dL (12.0-15.0); Mean Corp Hgb Conc 31.7 g/dL (32-36); Mean Corpuscular Hgb 31.9 pg (27.0-32.0); Mean Corpuscular Volume 100.6 fL (81-99); Mean Platelet Vol. 10.8 fl (6.2-12.0); Platelet Count 231 K/mm3 (150-450); RBC Distribution Width CV 13.3 % (11.6-14.6); RBC Distribution Width SD 48.6 fl (35.1-43.9); Red Blood Count 3.26 M/mm3 (4.2-5.4); White Blood Count 5.3 K/mm3 (4.4-11.0)
[2022-07-21 10:02] LABS: ALB/GLOB Ratio 0.8 RATIO (0.9-2.4); AST(SGOT) 33 U/L (15-37); Alanine Aminotransfer ALT/SGPT 39 U/L (13-56); Albumin, Serum 2.7 g/dL (3.2-5.0); Alkaline Phosphatase 73 U/L (45-117); Anion Gap 8 (5-15); BUN 13 mg/dL (7-18); BUN/Creat Ratio 22.8 RATIO (10-20); Calcium,Total 8.8 mg/dL (8.5-10.1); Chloride 106 mmol/L (98-107); Creatinine, Serum 0.57 mg/dL (0.55-1.02); EST Glomerular Filtration Rate 110 mL/min (>60); Est Glom Filt Rate - Afr Amer 133 mL/min (>60); Globulin 3.4 g/dL (2.2-4.2); Glucose 143 mg/dL (74-106); Potassium 4.2 mmol/L (3.5-5.1); Protein, Total 6.1 g/dL (6.4-8.2); Sodium Level 141 mmol/L (136-145)
== END ==
LOC: OLS.SANC 07:30
PROVIDERS: PCP Family Medicine; Visit Provider Internal Medicine
DX: E11.9 Type 2 diabetes mellitus without complications (principal); I10 Essential (primary) hypertension; E78.5 Hyperlipidemia, unspecified
CPT/HCPCS: 36415; 80053; 85027